=== PATIENT | female | born 1980 ===

== ENCOUNTER 2018-10-14 13:59 | Inpatient (IN) | payer MEDICAID, OTHER ==
[2018-10-14] MEDS ORDERED: DiphenhydrAMINE 50 mg/ml Inj IVP STA (15:00)
[2018-10-14] MEDS ORDERED: DiphenhydrAMINE 50 mg/ml Inj ONE (15:29)
--- NOTE | 2018-10-14 15:47 | ED PDOC ---
History of Present Illness History of Present Illness: Ena Ojeda is a 38 year old female with no past medical history who is presenting to the ED for evaluation of cough and sore throat onset 1 week ago. Patient states that approximately 3 weeks ago she had a sore throat and subjective fevers which lasted one week. She admits that she was using over the counter medications with some improvement however cough persists and she cont inues to have throat discomfort. Patient states that she feels like she is choking because she feels like there is liquid in the back of throat with continued trouble swallowing. She also reports that she feels short of breath and pain in chest secondary to cough. She denies any ear pain, night sweats, or body aches. Of note, patient states that she last took Ibuprofen at about 9 am today and notes an itchy rash to face and wrist that developed about 2 weeks ago. PMD: none provided HPI: Influenza Time Seen by Provider: 10/14/18 14:33 Chief Complaint: Cough, Cold, Congestion Chief Complaint (Provider): Cough, Cold, Congestion History Per: Patient Exam Limitations: no limitations Onset/Duration Of Symptoms: Days Symptoms include: fever (sbjective ), sore throat, cough. denies: bodyaches Past Medical History Reviewed: Historical Data, Nursing Documentation, Vital Signs Vital Signs: Last Vital Signs Temp 98.3 F 10/14/18 14:19 Pulse 106 H 10/14/18 14:19 Resp 20 10/14/18 14:19 BP 133/85 10/14/18 14:19 Pulse Ox 98 10/14/18 14:19 - Medical History PMH: No Chronic Diseases - Surgical History Surgical History: No Surg Hx - Family History Family History: States: Unknown Family Hx - Social History Current smoker - smoking cessation education provided: No Alcohol: None Drugs: Denies - Home Medications Home Medications: Ambulatory Orders Medication Instructions Recorded RX: No Known Home Med 10/14/18 - Allergies Allergies/Adverse Reactions: Allergies Allergy/AdvReac Type Severity Reaction Status Date / Time No Known Allergies Allergy Verified 10/14/18 14:19 Review of Systems ROS Statement: Except As Marked, All Systems Reviewed And Found Negative Constitutional: Positive for: Fever. Negative for: Sweats, Other (body aches ) ENT: Negative for: Ear Pain Cardiovascular: Positive for: Chest Pain Respiratory: Positive for: Cough, Shortness of Breath Skin: Positive for: Rash Physical Exam - Reviewed Nursing Documentation Reviewed: Yes Vital Signs Reviewed: Yes - Physical Exam Appears: Positive for: Non-toxic, No Acute Distress, Uncomfortable Head Exam: Positive for: ATRAUMATIC, NORMAL INSPECTION, NORMOCEPHALIC Skin: Positive for: Warm, Rash (urticarial rash: semicircular pattern to right cheek as well as right anterior ) ENT: Positive for: Tonsillar Swelling, Other (white punctate lesions to posterior pharynx and superior palate ). Negative for: Tonsillar Exudate Neck: Positive for: Normal, Painless ROM Cardiovascular/Chest: Positive for: Regular Rate, Rhythm, Murmur (3/6 systolic murmur without radiation ) Respiratory: Positive for: Normal Breath Sounds. Negative for: Respiratory Distress Neurologic/Psych: Positive for: Alert, Oriented. Negative for: Motor/Sensory Deficits Medical Decision Making Medical Decision Making: Time: 15:00 Plan: --EKG --CMP --ED urine --CBC --CXR --Benadryl 25 mg IVP --Tylenol 975 mg PO --Infectious [place] EKG: Sinus rhythm at 92 bpm. Normal EKG. Time: 1723 --Labs significant for creatinine of 4.3, low wbc, mild anemia. Patient to be admitted for renal failure under Dr. Johnson. Renal consult ordered. HIV, Blood Cx, U/A and urine cultures ordered. Renal consult called as per Dr. Johnson. I spoke with Dr. Mckinney who states that he is not compensation and benefits manager but will make sure to pass on the consult to the appropriate person. HIV +. Patient informed of result and that confirmatory test still needs to be done but that the initial test is usually accurate. Patient initially felt lightheaded after results given but recovered quickly. Patient admitted for further w/u. - Scribe Attestation: Documented byBertai acting as a scribe for Marian Sullivan PA-C. Provider Scribe Attestation: All medical record entries made by the Scribe were at my direction and personally dictated by me. I have reviewed the chart and agree that the record accurately reflects my personal performance of the history, physical exam, medical decision making, and the department course for this patient. I have also personally directed, reviewed, and agree with the discharge instructions and di sposition. - Laboratory Results Result Diagrams: 10/14/18 16:01 10/14/18 16:01 - ECG O2 Sat by Pulse Oximetry: 98 (RA) Pulse Ox Interpretation: Normal Disposition - Clinical Impression Clinical Impression: Acute renal failure (ARF) - Patient ED Disposition Is Patient to be Admitted: Yes Discussed With : Fernie Johnson Doctor Will See Patient In The: ED Counseled Patient/Family Regarding: Studies Performed, Diagnosis, Need For Followup - Disposition Disposition: Transfer of Care Disposition Time: 17:23 Condition: FAIR
[2018-10-14 16:08] LABS: BASO % 0.6 % (0.0-2.0); HEMOGLOBIN 9.4 g/dL (12.0-16.0); LYMPH # 1.3 K/uL (1.0-4.3); LYMPH % 27.5 % (20.0-40.0); MEAN CELL VOLUME 81.1 fl (81.0-99.0); MEAN CORPUSCULAR HEMOGLOBIN 27.3 pg (27.0-31.0); MEAN CORPUSCULAR HGB CONC 33.6 g/dL (33.0-37.0); MEAN PLATELET VOLUME 8.5 fl (7.2-11.7); MONO # 0.9 K/uL (0.0-0.8); MONO % 20.2 % (0.0-10.0); NEUT # 2.3 K/uL (1.8-7.0); NEUT % 50.7 % (50.0-75.0); NRBC % 0.1 % (0.0-0.0); PLATELET COUNT 184 K/uL (130-400); RBC 3.44 Mil/uL (3.80-5.20); RED CELL DISTRIBUTION WIDTH 14.6 % (11.5-14.5); WHITE BLOOD COUNT 4.6 K/uL (4.8-10.8)
[2018-10-14 16:19] LABS: ALB/GLOB RATIO 0.7 (1.0-2.1); CALCIUM 8.6 mg/dL (8.4-10.2)
--- NOTE | 2018-10-14 16:56 | RAD ---
Date of service: 10/14/2018 HISTORY: shortness of breath, cough COMPARISON: No prior. TECHNIQUE: Chest PA and lateral FINDINGS: LUNGS: No active pulmonary disease. PLEURA: No significant pleural effusion identified. No pneumothorax apparent. CARDIOVASCULAR: No aortic atherosclerotic calcification present. Normal cardiac size. No pulmonary vascular congestion. OSSEOUS STRUCTURES: No significant abnormalities. VISUALIZED UPPER ABDOMEN: Normal. OTHER FINDINGS: None. IMPRESSION: No active disease.
[2018-10-14] MEDS ORDERED: Sodium Chloride 3% for Inhalation 4 ML VIAL.NEB IH PRN (17:38)
[2018-10-14 18:01] LABS: EOSINOPHIL 1 % (0-7); LYMPHOCYTE 26 % (20-50); MONOCYTE 18 % (0-10); MYELOCYTE 1 % (0-0); NEUTROPHIL 54 % (42-75); TOTAL CELLS COUNTED 100
[2018-10-14 18:03] LABS: ANISOCYTOSIS SLIGHT; LARGE PLATELETS PRESENT; PLATELET ESTIMATE NORMAL (NORMAL); TEARDROP CELLS SLIGHT
[2018-10-14] MEDS ORDERED: Piperacillin/Tazobact 3.375 gm Inj IVPB ONE (18:14)
[2018-10-14] MEDS: Sodium Chloride 0.9% 1,000 ML IV SCH ×2 (18:18→22:50)
[2018-10-14 18:46] LABS: SQUAMOUS EPITHIAL 1 /hpf (0-5); URINE BACTERIA RARE (<OCC); URINE BILIRUBIN NEGATIVE (NEGATIVE); URINE BLOOD MODERATE (NEGATIVE); URINE CLARITY SLIGHTY-CLOUDY (Clear); URINE COLOR YELLOW (YELLOW); URINE GLUCOSE (UA) 50 mg/dL (NEGATIVE); URINE LEUKOCYTE ESTERASE NEG Leu/uL (Negative); URINE PROTEIN >=500 mg/dL (NEGATIVE); URINE UROBILINOGEN 0.2-1.0 mg/dL (0.2-1.0)
--- NOTE | 2018-10-14 18:59 | CP.PCM.HP ---
<Malia Naik - Last Filed: 10/15/18 00:17> History of Present Illness - History of Present Illness History of Present Illness: 38 yo female with no known medical history, presented to ED today for evaluation of cough and rash x 3 weeks; admitted due to ANTONINA found on bloodwork. Pt presented today with concern over cough x 3 weeks. States that for the first two weeks, cough was productive of green sputum (unable to quantify amount), but that has since resolved. She states [facility] mg tabs 3x a day for the past week (last dose yesterday), in hopes of helping the cough, but it did not help. She also reports subjective tactile fevers during this time, but did not measure with thermometer. Took advil and Tukol (OTC cough medicine) as well, with no relief. Denies sick contacts, states that her cousin who she lives with has a cough for the past few days. Denies travel outside [place], states she has only traveled to [place] in July 2018. Pt also came to ED for rash - rash appeared 3 weeks ago. Circular, itchy. Has not tried any medication at home. First noticed on face and wrist, however now also has it on her stomach. Denies night sweats, chills, chest pain, abdominal pain, nausea, vomiting, changes in appetite, changes in urinary habits, changes in bowel habits, leg swelling. Past Med hx: none Past Surg hx: 2 C-sections, 2001 and 2011, and BTL Social hx: former smoker (ages [age], 1 ppd; about 6 months ago smoked 4 cig a day for 2 months, denies smoking in past 4 months); alcohol on special occasions, denies drug use. Lives with her cousin. Sexually active with one partner. Does not use anything for contraception (including no condoms). Denies ever being diagnosed with any STI such as chlamydia, gonorrhea, syphilis, HIV. 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 Family hx: unknown Medications: no chronic medications Allergies: NKDA ED course: Vitals: HR 106, BP 133/85, Temp 98.3, RR 20, O2 sat 98 CBC: 4.6>9.4/27.9<184 CMP: remarkable for BUN 36, Cr 4.3, GFR 12 UA: >500 protein, 72 RBC, mod blood Influenza neg, Strep neg, [place] neg HIV Rapid Screen positive CXR: No active disease. Present on Admission - Present on Admission Any Indicators Present on Admission: No Review of Systems - Review of Systems Review of Systems: as mentioned in HPI Past Patient History - Past Social History Smoking Status: Former Smoker Alcohol: Social Drugs: Denies Home Situation {Lives}: With Family Domestic Violence: Negative - CARDIAC Hx Cardiac Disorders: No - PULMONARY Hx Respiratory Disorders: No - NEUROLOGICAL Hx Neurological Disorder: No - HEENT Hx HEENT Problems: No - RENAL Hx Chronic Kidney Disease: No - ENDOCRINE/METABOLIC Hx Endocrine Disorders: No - HEMATOLOGICAL/ONCOLOGICAL Hx Blood Disorders: No - INTEGUMENTARY Hx Dermatological Problems: No - MUSCULOSKELETAL/RHEUMATOLOGICAL Hx Musculoskeletal Disorders: No - GASTROINTESTINAL Hx Gastrointestinal Disorders: No - GENITOURINARY/GYNECOLOGICAL Hx Genitourinary Disorders: No - PSYCHIATRIC Hx Psychophysiologic Disorder: No Hx Substance Use: No - SURGICAL HISTORY Hx Surgeries: Yes Hx Section: Yes (x2) Other/Comment: BTL - ANESTHESIA Hx Anesthesia: Yes Hx Anesthesia Reactions: No Meds Allergies/Adverse Reactions: Allergies Allergy/AdvReac Type Severity Reaction Status Date / Time No Known Allergies Allergy Verified 10/14/18 14:19 Physical Exam - Constitutional Additional comments: tired, uncomfortable - Head Exam Head Exam: ATRAUMATIC - Eye Exam Eye Exam: Normal appearance - Neck Exam Neck exam: Negative for: Lymphadenopathy Additional comments: small white punctuate lesions on superior hard palate and posterior pharynx - Respiratory Exam Respiratory Exam: Clear to Auscultation Bilateral, NORMAL BREATHING PATTERN. absent: Respiratory Distress - Cardiovascular Exam Cardiovascular Exam: REGULAR RHYTHM, +S1, +S2 - GI/Abdominal Exam GI & Abdominal Exam: Normal Bowel Sounds, Soft Additional comments: + circular rash lesion, right sided abdomen - Extremities Exam Extremities exam: Negative for: pedal edema - Neurological Exam Neurological exam: Alert, Oriented x3 - Psychiatric Exam Additional comments: somewhat anxious - Skin Skin Exam: Rash Additional comments: circular/semicircular pattern to right cheek, right wrist, right sided abdomen, somewhat scaly appearing Results - Vital Signs Recent Vital Signs: Last Vital Signs Temp 98.3 F 10/14/18 14:19 Pulse 106 H 10/14/18 14:19 Resp 20 10/14/18 14:19 BP 133/85 10/14/18 14:19 Pulse Ox 98 10/14/18 17:27 - Labs Result Diagrams: 10/14/18 16:01 10/14/18 16:01 Labs: Laboratory Results - last 24 hr 10/14/18 10/14/18 10/14/18 16:01 16:01 16:01 WBC 4.6 L RBC 3.44 L Hgb 9.4 L Hct 27.9 L MCV 81.1 MCH 27.3 MCHC 33.6 RDW 14.6 H Plt Count 184 MPV 8.5 Neut % (Auto) 50.7 Lymph % (Auto) 27.5 [place] % (Auto) 20.2 H Eos % (Auto) 1.0 Baso % (Auto) 0.6 Neut # (Auto) 2.3 Lymph # (Auto) 1.3 [place] # (Auto) 0.9 H Eos # (Auto) 0.0 Baso # (Auto) 0.0 Neutrophils % (Manual) 54 Lymphocytes % (Manual) 26 Monocytes % (Manual) 18 H Eosinophils % (Manual) 1 Myelocytes % 1 H Platelet Estimate Normal Large Platelets Present Anisocytosis (manual) Slight Tear Drop Cells Slight Sodium 136 Potassium 4.8 Chloride 102 Carbon Dioxide 20 L Anion Gap 19 BUN 36 H Creatinine 4.3 H Est GFR ( Amer) 14 Est GFR (Non-Af Amer) 12 Random Glucose 90 Calcium 8.6 Total Bilirubin 0.3 AST 28 ALT 19 Alkaline Phosphatase 139 H NT-Pro-B Natriuret Pep Total Protein 7.6 Albumin 3.0 L Globulin 4.6 H Albumin/Globulin Ratio 0.7 L Urine Color Urine Clarity Urine pH Ur Specific [place] Urine Protein Urine Glucose (UA) Urine Ketones Urine Blood Urine Nitrate Urine Bilirubin Urine Urobilinogen Ur Leukocyte Esterase Urine RBC (Auto) Urine Microscopic WBC Ur Squamous Epith Cells Urine Bacteria Hyaline Casts Infectious [place] Assay Influenza Typ A,B (EIA) Negative for flu a/b Grp A Beta Strep Ag 10/14/18 10/14/18 10/14/18 16:01 16:01 16:45 WBC RBC Hgb Hct MCV MCH MCHC RDW Plt Count MPV Neut % (Auto) Lymph % (Auto) [place] % (Auto) Eos % (Auto) Baso % (Auto) Neut # (Auto) Lymph # (Auto) [place] # (Auto) Eos # (Auto) Baso # (Auto) Neutrophils % (Manual) Lymphocytes % (Manual) Monocytes % (Manual) Eosinophils % (Manual) Myelocytes % Platelet Estimate Large Platelets Anisocytosis (manual) Tear Drop Cells Sodium Potassium Chloride Carbon Dioxide Anion Gap BUN Creatinine Est GFR ( Amer) Est GFR (Non-Af Amer) Random Glucose Calcium Total Bilirubin AST ALT Alkaline Phosphatase NT-Pro-B Natriuret Pep 274 Total Protein Albumin Globulin Albumin/Globulin Ratio Urine Color Urine Clarity Urine pH Ur Specific [place] Urine Protein Urine Glucose (UA) Urine Ketones Urine Blood Urine Nitrate Urine Bilirubin Urine Urobilinogen Ur Leukocyte Esterase Urine RBC (Auto) Urine Microscopic WBC Ur Squamous Epith Cells Urine Bacteria Hyaline Casts Infectious [place] Assay Negative Influenza Typ A,B (EIA) Grp A Beta Strep Ag Negative 10/14/18 18:30 WBC RBC Hgb Hct MCV MCH MCHC RDW Plt Count MPV Neut % (Auto) Lymph % (Auto) [place] % (Auto) Eos % (Auto) Baso % (Auto) Neut # (Auto) Lymph # (Auto) [place] # (Auto) Eos # (Auto) Baso # (Auto) Neutrophils % (Manual) Lymphocytes % (Manual) Monocytes % (Manual) Eosinophils % (Manual) Myelocytes % Platelet Estimate Large Platelets Anisocytosis (manual) Tear Drop Cells Sodium Potassium Chloride Carbon Dioxide Anion Gap BUN Creatinine Est GFR ( Amer) Est GFR (Non-Af Amer) Random Glucose Calcium Total Bilirubin AST ALT Alkaline Phosphatase NT-Pro-B Natriuret Pep Total Protein Albumin Globulin Albumin/Globulin Ratio Urine Color Yellow Urine Clarity Slighty-cloudy Urine pH 6.0 Ur Specific [place] 1.015 Urine Protein >=500 Urine Glucose (UA) 50 Urine Ketones Negative Urine Blood Moderate Urine Nitrate Negative Urine Bilirubin Negative Urine Urobilinogen 0.2-1.0 Ur Leukocyte Esterase Neg Urine RBC (Auto) 72 H Urine Microscopic WBC 2 Ur Squamous Epith Cells 1 Urine Bacteria Rare Hyaline Casts 3-5 H Infectious [place] Assay Influenza Typ A,B (EIA) Grp A Beta Strep Ag Assessment & Plan - Assessment and Plan (Free Text) Assessment: 38 yo F with no known medical history, presented with cough and fungal appearing disseminated rash x 3 weeks; found to be in renal failure and with positive rapid HIV test. Plan: Renal Failure - Presumed acute, pt denies history of kidney issues in the past. - Nephrology consulted - Dr. Mckinney/Dr. Ann - Pending renal labs, as ordered by nephro - hepatitis b/c, complement, LEXI, SLE panel, microalb/cr, urine protein, mg, phos, vit d - Renal u/s taken; f/u results - CMP in am Anemia - Unknown etiology; may be secondary to kidney disease - Asymptomatic - F/u iron, TIBC, folate, ferritin Upper Respiratory Symptoms - Sputum culture - Blood culture, urine culture - Robitussin - CBC in am Skin Infection - Fungal vs bacterial - ID consulted- Dr. Carmona - Started on micafungin IV 100 mg daily, zosyn IVP Q8hrs HIV positive - Patient denies history, confirmatory test ordered - ID on board, pending recs Diet - Regular diet Prophylaxis - Pantoprazole - Heparin Q12 Discussed w/ Dr. Johnson. <Fernie Johnson D - Last Filed: 10/15/18 09:18> Results - Vital Signs Recent Vital Signs: Last Vital Signs Temp 98.7 F 10/15/18 08:00 Pulse 98 H 10/15/18 05:29 Resp 18 10/15/18 08:00 BP 126/82 10/15/18 08:00 Pulse Ox 97 10/15/18 08:00 - Labs Result Diagrams: 10/15/18 05:30 10/15/18 05:30 Labs: Laboratory Results - last 24 hr 10/14/18 10/14/18 10/14/18 16:01 16:01 16:01 WBC 4.6 L RBC 3.44 L Hgb 9.4 L Hct 27.9 L MCV 81.1 MCH 27.3 MCHC 33.6 RDW 14.6 H Plt Count 184 MPV 8.5 Neut % (Auto) 50.7 Lymph % (Auto) 27.5 [place] % (Auto) 20.2 H Eos % (Auto) 1.0 Baso % (Auto) 0.6 Neut # (Auto) 2.3 Lymph # (Auto) 1.3 [place] # (Auto) 0.9 H Eos # (Auto) 0.0 Baso # (Auto) 0.0 Neutrophils % (Manual) 54 Lymphocytes % (Manual) 26 Monocytes % (Manual) 18 H Eosinophils % (Manual) 1 Myelocytes % 1 H Platelet Estimate Normal Large Platelets Present Anisocytosis (manual) Slight Tear Drop Cells Slight Sodium 136 Potassium 4.8 Chloride 102 Carbon Dioxide 20 L Anion Gap 19 BUN 36 H Creatinine 4.3 H Est GFR ( Amer) 14 Est GFR (Non-Af Amer) 12 Random Glucose 90 Calcium 8.6 Phosphorus Magnesium Iron TIBC % Saturation Ferritin Total Bilirubin 0.3 AST 28 ALT 19 Alkaline Phosphatase 139 H NT-Pro-B Natriuret Pep Total Protein 7.6 Albumin 3.0 L Globulin 4.6 H Albumin/Globulin Ratio 0.7 L Vitamin B12 TSH 3rd Generation Urine Color Urine Clarity Urine pH Ur Specific [place] Urine Protein Urine Glucose (UA) Urine Ketones Urine Blood Urine Nitrate Urine Bilirubin Urine Urobilinogen Ur Leukocyte Esterase Urine RBC (Auto) Urine Microscopic WBC Ur Squamous Epith Cells Urine Bacteria Hyaline Casts HIV-1 Ab Rapid Screen Infectious [place] Assay Influenza Typ A,B (EIA) Negative for flu a/b Grp A Beta Strep Ag 10/14/18 10/14/18 10/14/18 16:01 16:01 16:45 WBC RBC Hgb Hct MCV MCH MCHC RDW Plt Count MPV Neut % (Auto) Lymph % (Auto) [place] % (Auto) Eos % (Auto) Baso % (Auto) Neut # (Auto) Lymph # (Auto) [place] # (Auto) Eos # (Auto) Baso # (Auto) Neutrophils % (Manual) Lymphocytes % (Manual) Monocytes % (Manual) Eosinophils % (Manual) Myelocytes % Platelet Estimate Large Platelets Anisocytosis (manual) Tear Drop Cells Sodium Potassium Chloride Carbon Dioxide Anion Gap BUN Creatinine Est GFR ( Amer) Est GFR (Non-Af Amer) Random Glucose Calcium Phosphorus Magnesium Iron TIBC % Saturation Ferritin Total Bilirubin AST ALT Alkaline Phosphatase NT-Pro-B Natriuret Pep 274 Total Protein Albumin Globulin Albumin/Globulin Ratio Vitamin B12 TSH 3rd Generation Urine Color Urine Clarity Urine pH Ur Specific [place] Urine Protein Urine Glucose (UA) Urine Ketones Urine Blood Urine Nitrate Urine Bilirubin Urine Urobilinogen Ur Leukocyte Esterase Urine RBC (Auto) Urine Microscopic WBC Ur Squamous Epith Cells Urine Bacteria Hyaline Casts HIV-1 Ab Rapid Screen Infectious [place] Assay Negative Influenza Typ A,B (EIA) Grp A Beta Strep Ag Negative 10/14/18 10/14/18 10/14/18 17:30 18:30 20:10 WBC RBC Hgb Hct MCV MCH MCHC RDW Plt Count MPV Neut % (Auto) Lymph % (Auto) [place] % (Auto) Eos % (Auto) Baso % (Auto) Neut # (Auto) Lymph # (Auto) [place] # (Auto) Eos # (Auto) Baso # (Auto) Neutrophils % (Manual) Lymphocytes % (Manual) Monocytes % (Manual) Eosinophils % (Manual) Myelocytes % Platelet Estimate Large Platelets Anisocytosis (manual) Tear Drop Cells Sodium Potassium Chloride Carbon Dioxide Anion Gap BUN Creatinine Est GFR ( Amer) Est GFR (Non-Af Amer) Random Glucose Calcium Phosphorus Magnesium Iron 54 TIBC 137 L % Saturation 40 Ferritin Total Bilirubin AST ALT Alkaline Phosphatase NT-Pro-B Natriuret Pep Total Protein Albumin Globulin Albumin/Globulin Ratio Vitamin B12 TSH 3rd Generation Urine Color Yellow Urine Clarity Slighty-cloudy Urine pH 6.0 Ur Specific [place] 1.015 Urine Protein >=500 Urine Glucose (UA) 50 Urine Ketones Negative Urine Blood Moderate Urine Nitrate Negative Urine Bilirubin Negative Urine Urobilinogen 0.2-1.0 Ur Leukocyte Esterase Neg Urine RBC (Auto) 72 H Urine Microscopic WBC 2 Ur Squamous Epith Cells 1 Urine Bacteria Rare Hyaline Casts 3-5 H HIV-1 Ab Rapid Screen Ab reactive H Infectious [place] Assay Influenza Typ A,B (EIA) Grp A Beta Strep Ag 10/14/18 10/15/18 10/15/18 20:10 05:30 05:30 WBC 4.4 L RBC 3.00 L Hgb 8.1 L Hct 24.0 L MCV 79.9 L MCH 27.1 MCHC 34.0 RDW 14.6 H Plt Count 158 MPV 8.1 Neut % (Auto) 53.1 Lymph % (Auto) 27.1 [place] % (Auto) 17.2 H Eos % (Auto) 2.2 Baso % (Auto) 0.4 Neut # (Auto) 2.3 Lymph # (Auto) 1.2 [place] # (Auto) 0.8 Eos # (Auto) 0.1 Baso # (Auto) 0.0 Neutrophils % (Manual) Lymphocytes % (Manual) Monocytes % (Manual) Eosinophils % (Manual) Myelocytes % Platelet Estimate Large Platelets Anisocytosis (manual) Tear Drop Cells Sodium 135 Potassium 4.8 Chloride 105 Carbon Dioxide 19 L Anion Gap 16 BUN 35 H Creatinine 4.4 H Est GFR ( Amer) 14 Est GFR (Non-Af Amer) 11 Random Glucose 82 Calcium 8.0 L Phosphorus 5.0 H Magnesium 1.7 Iron TIBC % Saturation Ferritin 547.0 H Total Bilirubin AST ALT Alkaline Phosphatase NT-Pro-B Natriuret Pep Total Protein Albumin Globulin Albumin/Globulin Ratio Vitamin B12 345 TSH 3rd Generation 1.63 Urine Color Urine Clarity Urine pH Ur Specific [place] Urine Protein Urine Glucose (UA) Urine Ketones Urine Blood Urine Nitrate Urine Bilirubin Urine Urobilinogen Ur Leukocyte Esterase Urine RBC (Auto) Urine Microscopic WBC Ur Squamous Epith Cells Urine Bacteria Hyaline Casts HIV-1 Ab Rapid Screen Infectious [place] Assay Influenza Typ A,B (EIA) Grp A Beta Strep Ag Attending/Attestation - Attestation I have personally seen and examined this patient.: Yes I have fully participated in the care of the patient.: Yes I have reviewed all pertinent clinical information: Yes Notes (Text): 10/15/18 09:18 Patient seen and examined with resident. Case discussed and agreed with assessment and plan of management.
[2018-10-14] MEDS: Micafungin 100 MG in Sodium Chloride 0.9% 100 ML IV SCH (19:15)
[2018-10-14 20:33] LABS: IRON 54 ug/dL (37-170)
[2018-10-14 20:42] LABS: % IRON SATURATION 40 % (20-55); TOTAL IRON BINDING CAPACITY 137 ug/dL (250-450)
[2018-10-15] MEDS: Benzocaine/Menthol (Cepacol) Lozenge PO PRN ×2 (00:09→04:13)
[2018-10-15] MEDS: guaiFENesin 100 mg/5 ml Syrup UD PO PRN ×3 (00:32→17:34)
[2018-10-15] MEDS: Sodium Chloride 0.9% 1,000 ML IV SCH ×3 (04:16→13:33)
[2018-10-15 06:51] LABS: BASO % 0.4 % (0.0-2.0); EOS # 0.1 K/uL (0.0-0.7); EOS % 2.2 % (0.0-4.0); HEMOGLOBIN 8.1 g/dL (12.0-16.0); LYMPH # 1.2 K/uL (1.0-4.3); LYMPH % 27.1 % (20.0-40.0); MEAN CELL VOLUME 79.9 fl (81.0-99.0); MEAN CORPUSCULAR HEMOGLOBIN 27.1 pg (27.0-31.0); MEAN PLATELET VOLUME 8.1 fl (7.2-11.7); MONO # 0.8 K/uL (0.0-0.8); MONO % 17.2 % (0.0-10.0); NEUT # 2.3 K/uL (1.8-7.0); NEUT % 53.1 % (50.0-75.0); NRBC % 0.1 % (0.0-0.0); RED CELL DISTRIBUTION WIDTH 14.6 % (11.5-14.5); WHITE BLOOD COUNT 4.4 K/uL (4.8-10.8)
[2018-10-15] MEDS: Micafungin 100 MG in Sodium Chloride 0.9% 100 ML IV SCH (09:30)
[2018-10-15] MEDS: Pantoprazole 40 mg EC Tab PO SCH (09:35)
--- NOTE | 2018-10-15 09:59 | CP.PCM.PN ---
<Sultan Daniel - Last Filed: 10/15/18 11:15> Subjective - Date & Time of Evaluation Date of Evaluation: 10/15/18 Time of Evaluation: 09:59 - Subjective Subjective: 38 yo old female admitted for ANTONINA and disseminated fungal appearing rash, found to be positive for rapid HIV test. Patient recently came from [facility] on 07/2018. Patient seen and examined this morning No acute overnight events. Afebrile with stable vitals. Still has cough and sore throat. Denies any nausea, vomiting, abdominal pain, dysuria, fever, chills or flank pain. Patient is tolerating PO. Normal BM and voiding regularly. Objective - Vital Signs/Intake and Output Vital Signs (last 24 hours): Temp Pulse Resp BP Pulse Ox 98.7 F 98 H 18 126/82 97 10/15/18 08:00 10/15/18 05:29 10/15/18 08:00 10/15/18 08:00 10/15/18 08:00 - Medications Medications: Current Medications Benzocaine/Menthol (Cepacol Sore Throat) 1 lety PO Q2 PRN PRN Reason: Sore Throat Last Admin: 10/15/18 04:13 Dose: 1 lety Guaifenesin (Robitussin) 100 mg PO Q4 PRN PRN Reason: Cough Last Admin: 10/15/18 04:19 Dose: 100 mg Heparin Sodium (Porcine) (Heparin) 5,000 units SC Q12 [facility]; Protocol Last Admin: 10/15/18 09:34 Dose: 5,000 units Sodium Chloride (Sodium Chloride 0.9%) 1,000 mls @ 200 mls/hr IV .Q5H [facility] Last Admin: 10/15/18 04:16 Dose: 200 mls/hr Piperacillin Sod/Tazobactam (Sod 2.25 gm/ Sodium Chloride) 100 mls @ 100 mls/hr IVPB Q8 [facility]; Protocol Last Admin: 10/15/18 00:10 Dose: 100 mls/hr Micafungin Sodium 100 mg/ (Sodium Chloride) 100 mls @ 100 mls/hr IV DAILY [facility] Last Admin: 10/15/18 09:30 Dose: 100 mls/hr Pantoprazole Sodium (Protonix Ec Tab) 40 mg PO DAILY [facility] Last Admin: 02/02/19 09:35 Dose: 40 mg - Labs Labs: 10/15/18 05:30 10/15/18 05:30 - Constitutional Appears: No Acute Distress - Head Exam Head Exam: NORMAL INSPECTION - Eye Exam Eye Exam: Normal appearance - ENT Exam ENT Exam: Mucous Membranes Moist Additional comments: small whitish lesions on superior hard palate and posterior pharynx - Neck Exam Neck Exam: Full ROM. absent: Lymphadenopathy - Respiratory Exam Respiratory Exam: Clear to Ausculation Bilateral, NORMAL BREATHING PATTERN. absent: Rhonchi, Wheezes - Cardiovascular Exam Cardiovascular Exam: REGULAR RHYTHM, +S1, +S2 - GI/Abdominal Exam GI & Abdominal Exam: Soft, Normal Bowel Sounds. absent: Tenderness Additional comments: + circular rash lesion, right sided abdomen - Extremities Exam Extremities Exam: Normal Inspection. absent: Calf Tenderness - Back Exam Back Exam: absent: CVA tenderness (L), CVA tenderness (R) - Neurological Exam Neurological Exam: Alert, Awake, Oriented x3 - Skin Skin Exam: Rash Additional comments: oval shaped slight erythematous raised scaly appearing rash on right cheek, right wrist, right sided abdomen. Assessment and Plan - Assessment and Plan (Free Text) Assessment: 38 yo F with no known medical history, presented with cough and fungal appearing disseminated rash x 3 weeks; found to be in renal failure and with positive rapid HIV test. Plan: Renal Failure - Presumed acute, pt denies history of kidney issues in the past. - Nephrology consulted - Dr. Mckinney/Dr. 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 Carmona - Started on micafungin IV 100 mg daily, zosyn IVP Q8hrs Anemia - Unknown etiology; may be secondary to kidney disease - Asymptomatic -H&H 8.1/24.0 -Iron 54, TIBC 137, ferritin 547 -Vitamin b 12: 345 Upper Respiratory Symptoms - Sputum culture - Blood culture, urine culture - Robitussin - CBC in am Diet - Regular diet Prophylaxis - Pantoprazole - Heparin Q12 Discussed w/ Dr. Johnson. <Fernie Johnson D - Last Filed: 10/15/18 13:03> Objective - Vital Signs/Intake and Output Vital Signs (last 24 hours): Temp Pulse Resp BP Pulse Ox 97.9 F 88 18 134/72 95 10/15/18 12:09 10/15/18 12:09 10/15/18 12:09 10/15/18 12:09 10/15/18 12:09 - Medications Medications: Current Medications Benzocaine/Menthol (Cepacol Sore Throat) 1 lety PO Q2 PRN PRN Reason: Sore Throat Last Admin: 10/15/18 04:13 Dose: 1 lety Epoetin Lemuel (Procrit) 8,000 unit SC TTS [facility] Ferrous Gluconate (Fergon) 324 mg PO TID [facility] Guaifenesin (Robitussin) 100 mg PO Q4 PRN PRN Reason: Cough Last Admin: 10/15/18 04:19 Dose: 100 mg Heparin Sodium (Porcine) (Heparin) 5,000 units SC Q12 [facility]; Protocol Last Admin: 10/15/18 09:34 Dose: 5,000 units Piperacillin Sod/Tazobactam (Sod 2.25 gm/ Sodium Chloride) 100 mls @ 100 mls/hr IVPB Q8 [facility]; Protocol Last Admin: 10/15/18 11:10 Dose: 100 mls/hr Micafungin Sodium 100 mg/ (Sodium Chloride) 100 mls @ 100 mls/hr IV DAILY [facility] Last Admin: 10/15/18 09:30 Dose: 100 mls/hr Sodium Chloride (Sodium Chloride 0.9%) 1,000 mls @ 75 mls/hr IV .[id number] [facility] Last Admin: 10/15/18 11:17 Dose: 75 mls/hr Pantoprazole Sodium (Protonix Ec Tab) 40 mg PO DAILY [facility] Last Admin: 10/15/18 09:35 Dose: 40 mg Sodium Bicarbonate (Sodium Bicarbonate Tab) 1,300 mg PO BID [facility] Last Admin: 02/02/19 11:14 Dose: 1,300 mg Vitamin B Complex/Vit C/Folic Acid (Nephro-Marah) 1 tab PO DAILY [facility] Last Admin: 10/15/18 11:14 Dose: 1 tab - Labs Labs: 10/15/18 05:30 10/15/18 05:30 Attending/Attestation - Attestation I have personally seen and examined this patient.: Yes I have fully participated in the care of the patient.: Yes I have reviewed all pertinent clinical information, including history, physical exam and plan: Yes Notes (Text): 10/15/18 13:03 Patient seen and examined with resident. Case discussed and agreed with assessment and plans.
--- NOTE | 2018-10-15 10:10 | US ---
Date of service: 10/14/2018 PROCEDURE: Ultrasound of the Kidneys HISTORY: acute renal failure COMPARISON: None available. TECHNIQUE: Sonogram of the kidneys. FINDINGS: RIGHT KIDNEY: Measures: 11.8 x 5.1 x 4.7 cm. Mild fullness of the renal pelvis. No obstructing calculus identified. No renal solid or cystic mass appreciated. LEFT KIDNEY: Measures: 10.9 x 5.9 x 6.4 cm. Mild fullness of the renal pelvis. No obstructing calculus identified. No renal solid or cystic mass appreciated. OTHER FINDINGS: None. IMPRESSION: Mild fullness of bilateral renal pelves. Preliminary impression was provided by [email or web address].
[2018-10-15] MEDS: Multivitamin Vitamin B Complex (Nephro-Vite) Tab PO SCH (11:14)
[2018-10-15 12:19] LABS: COMPLEMENT C4 27.9 mg/dL (14.0-44.0)
[2018-10-15 12:43] LABS: HEPATITIS B SURFACE AG Negative (NEGATIVE)
[2018-10-15 12:49] LABS: HEPATITIS B CORE AB NEGATIVE (NEGATIVE)
[2018-10-15 13:00] LABS: HEPATITIS C ANTIBODY NEGATIVE (NEGATIVE)
[2018-10-15 13:17] LABS: FOLATE 7.3 ng/mL
[2018-10-15] MEDS: Epoetin Alfa 20000 UNIT/ML Inj SC SCH (13:32)
--- NOTE | 2018-10-15 17:13 | CARD ---
APPROVED REPORT Date of service: 10/14/2018 EKG Measurement Heart [id number] NM [id number] <Conclusion> Normal sinus rhythm Normal ECG
--- NOTE | 2018-10-15 18:13 | CP.PCM.CON ---
History of Present Illness - History of Present Illness History of Present Illness: 38 y old woman presented with difficulty swallowing and rash for the past 3 weeks and found to have ANTONINA on blood work. Denies any night sweats or fevers. Past Patient History - Past Medical History & Family History Past Medical History?: No - Past Social History Smoking Status: Former Smoker - CARDIAC Hx Cardiac Disorders: No - PULMONARY Hx Respiratory Disorders: No - NEUROLOGICAL Hx Neurological Disorder: No - HEENT Hx HEENT Problems: No - RENAL Hx Chronic Kidney Disease: No - ENDOCRINE/METABOLIC Hx Endocrine Disorders: No - HEMATOLOGICAL/ONCOLOGICAL Hx AIDS: No Hx Human Immunodeficiency Virus (HIV): Yes - INTEGUMENTARY Hx Dermatological Problems: No - MUSCULOSKELETAL/RHEUMATOLOGICAL Hx Falls: No - GASTROINTESTINAL Hx Gastrointestinal Disorders: No - GENITOURINARY/GYNECOLOGICAL Hx Genitourinary Disorders: No - PSYCHIATRIC Hx Substance Use: No - SURGICAL HISTORY Hx Surgeries: Yes Hx Section: Yes (x2) Other/Comment: BTL - ANESTHESIA Hx Anesthesia: Yes Hx Anesthesia Reactions: No Meds Allergies/Adverse Reactions: Allergies Allergy/AdvReac Type Severity Reaction Status Date / Time No Known Allergies Allergy Verified 10/14/18 14:19 - Medications Medications: Current Medications Benzocaine/Menthol (Cepacol Sore Throat) 1 lety PO Q2 PRN PRN Reason: Sore Throat Last Admin: 10/15/18 04:13 Dose: 1 lety Epoetin Lemuel (Procrit) 8,000 unit SC TTS [facility] Last Admin: 10/15/18 13:32 Dose: 8,000 unit Ferrous Gluconate (Fergon) 324 mg PO TID [facility] Last Admin: 10/15/18 17:18 Dose: 324 mg Guaifenesin (Robitussin) 100 mg PO Q4 PRN PRN Reason: Cough Last Admin: 10/15/18 17:34 Dose: 100 mg Heparin Sodium (Porcine) (Heparin) 5,000 units SC Q12 [facility]; Protocol Last Admin: 10/15/18 09:34 Dose: 5,000 units Piperacillin Sod/Tazobactam (Sod 2.25 gm/ Sodium Chloride) 100 mls @ 100 mls/hr IVPB Q8 [facility]; Protocol Last Admin: 10/15/18 17:26 Dose: 100 mls/hr Micafungin Sodium 100 mg/ (Sodium Chloride) 100 mls @ 100 mls/hr IV DAILY [facility] Last Admin: 10/15/18 09:30 Dose: 100 mls/hr Sodium Chloride (Sodium Chloride 0.9%) 1,000 mls @ 75 mls/hr IV .[id number] [facility] Last Admin: 10/15/18 11:17 Dose: 75 mls/hr Pantoprazole Sodium (Protonix Ec Tab) 40 mg PO DAILY [facility] Last Admin: 10/15/18 09:35 Dose: 40 mg Sodium Bicarbonate (Sodium Bicarbonate Tab) 1,300 mg PO BID [facility] Last Admin: 10/15/18 17:19 Dose: 1,300 mg Vitamin B Complex/Vit C/Folic Acid (Nephro-Marah) 1 tab PO DAILY [facility] Last Admin: 10/15/18 11:14 Dose: 1 tab Physical Exam - ENT Exam Additional comments: whitish patches in the pharynx - Skin Additional comments: circular scattered rash faint at current time Results - Vital Signs Recent Vital Signs: Last Vital Signs Temp 98.8 F 10/15/18 16:17 Pulse 83 10/15/18 16:17 Resp 17 10/15/18 16:17 BP 139/84 10/15/18 16:17 Pulse Ox 96 10/15/18 16:17 - Labs Result Diagrams: 10/15/18 05:30 10/15/18 05:30 Labs: Laboratory Results - last 24 hr 10/14/18 10/14/18 10/14/18 17:30 18:30 20:10 WBC RBC Hgb Hct MCV MCH MCHC RDW Plt Count MPV Neut % (Auto) Lymph % (Auto) [place] % (Auto) Eos % (Auto) Baso % (Auto) Neut # (Auto) Lymph # (Auto) [place] # (Auto) Eos # (Auto) Baso # (Auto) Sodium Potassium Chloride Carbon Dioxide Anion Gap BUN Creatinine Est GFR ( Amer) Est GFR (Non-Af Amer) Random Glucose Calcium Phosphorus Magnesium Iron 54 TIBC 137 L % Saturation 40 Ferritin Vitamin B12 25-OH Vitamin D Total Folate TSH 3rd Generation Urine Color Yellow Urine Clarity Slighty-cloudy Urine pH 6.0 Ur Specific [place] 1.015 Urine Protein >=500 Urine Glucose (UA) 50 Urine Ketones Negative Urine Blood Moderate Urine Nitrate Negative Urine Bilirubin Negative Urine Urobilinogen 0.2-1.0 Ur Leukocyte Esterase Neg Urine RBC (Auto) 72 H Urine Microscopic WBC 2 Ur Squamous Epith Cells 1 Urine Bacteria Rare Hyaline Casts 3-5 H Complement C3 Complement C4 Hep Bs Antigen Hep B Core IgM Ab Hepatitis C Antibody HIV-1 Ab Rapid Screen Ab reactive H 10/14/18 10/14/18 10/15/18 20:10 20:10 05:30 WBC 4.4 L RBC 3.00 L Hgb 8.1 L Hct 24.0 L MCV 79.9 L MCH 27.1 MCHC 34.0 RDW 14.6 H Plt Count 158 MPV 8.1 Neut % (Auto) 53.1 Lymph % (Auto) 27.1 [place] % (Auto) 17.2 H Eos % (Auto) 2.2 Baso % (Auto) 0.4 Neut # (Auto) 2.3 Lymph # (Auto) 1.2 [place] # (Auto) 0.8 Eos # (Auto) 0.1 Baso # (Auto) 0.0 Sodium Potassium Chloride Carbon Dioxide Anion Gap BUN Creatinine Est GFR ( Amer) Est GFR (Non-Af Amer) Random Glucose Calcium Phosphorus Magnesium Iron TIBC % Saturation Ferritin 547.0 H Vitamin B12 345 25-OH Vitamin D Total Folate 7.3 TSH 3rd Generation Urine Color Urine Clarity Urine pH Ur Specific [place] Urine Protein Urine Glucose (UA) Urine Ketones Urine Blood Urine Nitrate Urine Bilirubin Urine Urobilinogen Ur Leukocyte Esterase Urine RBC (Auto) Urine Microscopic WBC Ur Squamous Epith Cells Urine Bacteria Hyaline Casts Complement C3 132.0 Complement C4 27.9 Hep Bs Antigen Negative Hep B Core IgM Ab Negative Hepatitis C Antibody Negative HIV-1 Ab Rapid Screen 10/15/18 10/15/18 05:30 05:30 WBC RBC Hgb Hct MCV MCH MCHC RDW Plt Count MPV Neut % (Auto) Lymph % (Auto) [place] % (Auto) Eos % (Auto) Baso % (Auto) Neut # (Auto) Lymph # (Auto) [place] # (Auto) Eos # (Auto) Baso # (Auto) Sodium 135 Potassium 4.8 Chloride 105 Carbon Dioxide 19 L Anion Gap 16 BUN 35 H Creatinine 4.4 H Est GFR ( Amer) 14 Est GFR (Non-Af Amer) 11 Random Glucose 82 Calcium 8.0 L Phosphorus 5.0 H Magnesium 1.7 Iron TIBC % Saturation Ferritin Vitamin B12 25-OH Vitamin D Total < 12.8 L Folate TSH 3rd Generation 1.63 Urine Color Urine Clarity Urine pH Ur Specific [place] Urine Protein Urine Glucose (UA) Urine Ketones Urine Blood Urine Nitrate Urine Bilirubin Urine Urobilinogen Ur Leukocyte Esterase Urine RBC (Auto) Urine Microscopic WBC Ur Squamous Epith Cells Urine Bacteria Hyaline Casts Complement C3 Complement C4 Hep Bs Antigen Hep B Core IgM Ab Hepatitis C Antibody HIV-1 Ab Rapid Screen Assessment & Plan - Assessment and Plan (Free Text) Assessment: HIV + with oral thrush Rash; HIV vs fungal. ANTONINA Agree with mycamin #2/10. Continue Zosyn #2/7 Make arrangements for follow up at [facility] at time of discharge for HIV treatment and follow up.
--- NOTE | 2018-10-15 18:48 | CP.PCM.CON ---
History of Present Illness - History of Present Illness History of Present Illness: Nephrology Consultation Note: Assessment: Stable Acute Kidney Injury (N17.9) ? etiology ? HIVAN Anemia (D64.9) HIV + UTI ? thrush proteinuria acidosis, vit d def Plan No acute need for renal replacement therapy at this time. Hypertension control with meds as ordered. Maintain hemodynamics stable. Avoid hypotension. Patient not on ACEI/ARB due to recent ANTONINA Monitor Input/Output, daily weights and renal function with basic metabolic pane l started iron, MVI and epogen lower IVF ID following recommend kidney biopsy. check type/screen. may need to transfuse PRBC to target Hb atleast 9-10 prior to biopsy started bicarb and weekly vit D Check urine analysis, spot protein/creatinine, albumin/creatinine ratio, urine for eosinophils. renal sonogram Check GN work up as C3, C4, LEXI, Anti dsDNA, ASO titers, ANCA (MPO and MN-3), Anti GBM antibody, HIV/Hep B and Hep C serology Anemia work up with TSAT/Ferritin/Vitamin B12/folate Check for 25-OH vitamin D, iPTH, phosphorus level. Dose meds/antibiotics for reduced GFR. Avoid fleets enema/magnesium based laxatives. Avoid nephrotoxins/NSAIDs/ iodinated contrast (unless needed emergently) Glycemic control Further work up/management as per primary team Thanks for allowing me to participate in care of your patient. Will follow patient with you. Please call if any Qs Dr Seth Cheema Office: [phone] Chief Complaint; cough Reason for consult: Acute Kidney Injury HPI: Pt is a 38 F obese with out known medical hx presented with complaints of cough/sore throat and skin rash. found to have HIV + and ANTONINA hence renal consulted Denies OTC/herbal meds but reported use of NSAIDs No recent iodinated contrast exposure. No obvious episodes of low BP. she feels better ROS: used language line Cardiovascular: No chest pain. Pulmonary: No shortness of breath Gastrointestinal: denies abdominal pain No nausea. No vomiting. Genitourinary: No pain while urinating. Denies blood in urine. All other negative except as mentioned in HPI Physical Examination: General Appearance: Comfortable, in no acute respiratory distress, co-operative . obese Vitals reviewed and noted as below Head; Atraumatic, normocephalic ENT: no ulcers no thrush. Tongue is midline. Oropharynx: no rash or ulcers. EYES: Pupils are equal, round and reactive to light accommodation. Eye muscles and extraocular movement intact. Sclera is anicteric. Neck; supple no lymphadenopathy, no thyromegaly or bruit Lungs: Normal respiratory rate/effort. Breath sounds bilateral equal and clear Heart: Normal rate. s1s2 normal. No rub or gallop. Extremities: no edema. No varicose veins Neurological: Patient is alert, awake and oriented to person, place and time. No focal deficit. Strength bilateral appropriate and equal Skin: Warm and dry. Normal turgor. No rash. Palpitation: Normal elasticity for age Abdomen: Abdomen is soft. Bowel sounds +. There is no abdominal tenderness, no guarding/rigidity no organomegaly Psych: normal insight and normal affect/mood MSK: no joint tenderness or swelling. Digits and nails normal, no deformity : kidney or bladder not palpable Labs/imaging reviewed. Past medical history, past surgical history, family history, social history, allergy reviewed and noted as below Family hx: no hx of CKD. Rest non-contributory Past Patient History - Past Medical History & Family History Past Medical History?: No - Past Social History Smoking Status: Former Smoker - CARDIAC Hx Cardiac Disorders: No - PULMONARY Hx Respiratory Disorders: No - NEUROLOGICAL Hx Neurological Disorder: No - HEENT Hx HEENT Problems: No - RENAL Hx Chronic Kidney Disease: No - ENDOCRINE/METABOLIC Hx Endocrine Disorders: No - HEMATOLOGICAL/ONCOLOGICAL Hx AIDS: No Hx Human Immunodeficiency Virus (HIV): Yes - INTEGUMENTARY Hx Dermatological Problems: No - MUSCULOSKELETAL/RHEUMATOLOGICAL Hx Falls: No - GASTROINTESTINAL Hx Gastrointestinal Disorders: No - GENITOURINARY/GYNECOLOGICAL Hx Genitourinary Disorders: No - PSYCHIATRIC Hx Substance Use: No - SURGICAL HISTORY Hx Surgeries: Yes Hx Section: Yes (x2) Other/Comment: BTL - ANESTHESIA Hx Anesthesia: Yes Hx Anesthesia Reactions: No Meds Allergies/Adverse Reactions: Allergies Allergy/AdvReac Type Severity Reaction Status Date / Time No Known Allergies Allergy Verified 10/14/18 14:19 - Medications Medications: Current Medications Benzocaine/Menthol (Cepacol Sore Throat) 1 lety PO Q2 PRN PRN Reason: Sore Throat Last Admin: 10/15/18 04:13 Dose: 1 lety Epoetin Lemuel (Procrit) 8,000 unit SC TTS [facility] Last Admin: 10/15/18 13:32 Dose: 8,000 unit Ferrous Gluconate (Fergon) 324 mg PO TID [facility] Last Admin: 10/15/18 17:18 Dose: 324 mg Guaifenesin (Robitussin) 100 mg PO Q4 PRN PRN Reason: Cough Last Admin: 10/15/18 17:34 Dose: 100 mg Heparin Sodium (Porcine) (Heparin) 5,000 units SC Q12 [facility]; Protocol Last Admin: 10/15/18 09:34 Dose: 5,000 units Piperacillin Sod/Tazobactam (Sod 2.25 gm/ Sodium Chloride) 100 mls @ 100 mls/hr IVPB Q8 [facility]; Protocol Last Admin: 10/15/18 17:26 Dose: 100 mls/hr Micafungin Sodium 100 mg/ (Sodium Chloride) 100 mls @ 100 mls/hr IV DAILY [facility] Last Admin: 10/15/18 09:30 Dose: 100 mls/hr Sodium Chloride (Sodium Chloride 0.9%) 1,000 mls @ 75 mls/hr IV .[id number] [facility] Last Admin: 10/15/18 11:17 Dose: 75 mls/hr Pantoprazole Sodium (Protonix Ec Tab) 40 mg PO DAILY [facility] Last Admin: 10/15/18 09:35 Dose: 40 mg Sodium Bicarbonate (Sodium Bicarbonate Tab) 1,300 mg PO BID [facility] Last Admin: 10/15/18 17:19 Dose: 1,300 mg Vitamin B Complex/Vit C/Folic Acid (Nephro-Marah) 1 tab PO DAILY [facility] Last Admin: 10/15/18 11:14 Dose: 1 tab Results - Vital Signs Recent Vital Signs: Last Vital Signs Temp 98.8 F 10/15/18 16:17 Pulse 83 10/15/18 16:17 Resp 17 10/15/18 16:17 BP 139/84 10/15/18 16:17 Pulse Ox 96 10/15/18 16:17 - Labs Result Diagrams: 10/15/18 05:30 10/15/18 05:30 Labs: Laboratory Results - last 24 hr 10/14/18 10/14/18 10/14/18 17:30 18:30 20:00 WBC RBC Hgb Hct MCV MCH MCHC RDW Plt Count MPV Neut % (Auto) Lymph % (Auto) [place] % (Auto) Eos % (Auto) Baso % (Auto) Neut # (Auto) Lymph # (Auto) [place] # (Auto) Eos # (Auto) Baso # (Auto) Sodium Potassium Chloride Carbon Dioxide Anion Gap BUN Creatinine Est GFR ( Amer) Est GFR (Non-Af Amer) Random Glucose Calcium Phosphorus Magnesium Iron TIBC % Saturation Ferritin Vitamin B12 25-OH Vitamin D Total Folate TSH 3rd Generation Urine Color Yellow Urine Clarity Slighty-cloudy Urine pH 6.0 Ur Specific [place] 1.015 Urine Protein >=500 Urine Glucose (UA) 50 Urine Ketones Negative Urine Blood Moderate Urine Nitrate Negative Urine Bilirubin Negative Urine Urobilinogen 0.2-1.0 Ur Leukocyte Esterase Neg Urine RBC (Auto) 72 H Urine Microscopic WBC 2 Ur Squamous Epith Cells 1 Urine Bacteria Rare Hyaline Casts 3-5 H Complement C3 Complement C4 Hep Bs Antigen Hep B Core IgM Ab Hepatitis C Antibody HIV-1 Ab Rapid Screen Ab reactive H Anti-Streptolysin O Ab Negative 10/14/18 10/14/18 10/14/18 20:10 20:10 20:10 WBC RBC Hgb Hct MCV MCH MCHC RDW Plt Count MPV Neut % (Auto) Lymph % (Auto) [place] % (Auto) Eos % (Auto) Baso % (Auto) Neut # (Auto) Lymph # (Auto) [place] # (Auto) Eos # (Auto) Baso # (Auto) Sodium Potassium Chloride Carbon Dioxide Anion Gap BUN Creatinine Est GFR ( Amer) Est GFR (Non-Af Amer) Random Glucose Calcium Phosphorus Magnesium Iron 54 TIBC 137 L % Saturation 40 Ferritin 547.0 H Vitamin B12 345 25-OH Vitamin D Total Folate 7.3 TSH 3rd Generation Urine Color Urine Clarity Urine pH Ur Specific [place] Urine Protein Urine Glucose (UA) Urine Ketones Urine Blood Urine Nitrate Urine Bilirubin Urine Urobilinogen Ur Leukocyte Esterase Urine RBC (Auto) Urine Microscopic WBC Ur Squamous Epith Cells Urine Bacteria Hyaline Casts Complement C3 132.0 Complement C4 27.9 Hep Bs Antigen Negative Hep B Core IgM Ab Negative Hepatitis C Antibody Negative HIV-1 Ab Rapid Screen Anti-Streptolysin O Ab 10/15/18 10/15/18 10/15/18 05:30 05:30 05:30 WBC 4.4 L RBC 3.00 L Hgb 8.1 L Hct 24.0 L MCV 79.9 L MCH 27.1 MCHC 34.0 RDW 14.6 H Plt Count 158 MPV 8.1 Neut % (Auto) 53.1 Lymph % (Auto) 27.1 [place] % (Auto) 17.2 H Eos % (Auto) 2.2 Baso % (Auto) 0.4 Neut # (Auto) 2.3 Lymph # (Auto) 1.2 [place] # (Auto) 0.8 Eos # (Auto) 0.1 Baso # (Auto) 0.0 Sodium 135 Potassium 4.8 Chloride 105 Carbon Dioxide 19 L Anion Gap 16 BUN 35 H Creatinine 4.4 H Est GFR ( Amer) 14 Est GFR (Non-Af Amer) 11 Random Glucose 82 Calcium 8.0 L Phosphorus 5.0 H Magnesium 1.7 Iron TIBC % Saturation Ferritin Vitamin B12 25-OH Vitamin D Total < 12.8 L Folate TSH 3rd Generation 1.63 Urine Color Urine Clarity Urine pH Ur Specific [place] Urine Protein Urine Glucose (UA) Urine Ketones Urine Blood Urine Nitrate Urine Bilirubin Urine Urobilinogen Ur Leukocyte Esterase Urine RBC (Auto) Urine Microscopic WBC Ur Squamous Epith Cells Urine Bacteria Hyaline Casts Complement C3 Complement C4 Hep Bs Antigen Hep B Core IgM Ab Hepatitis C Antibody HIV-1 Ab Rapid Screen Anti-Streptolysin O Ab
[2018-10-15] MEDS ORDERED: Ergocalciferol 50,000 Intl Units Cap PO SCH (19:00)
[2018-10-16] MEDS: Sodium Chloride 0.9% 1,000 ML IV SCH ×2 (06:18→17:01)
[2018-10-16 06:42] LABS: BASO % 0.8 % (0.0-2.0); EOS # 0.1 K/uL (0.0-0.7); EOS % 2.8 % (0.0-4.0); HEMOGLOBIN 7.8 g/dL (12.0-16.0); LYMPH # 1.3 K/uL (1.0-4.3); LYMPH % 35.3 % (20.0-40.0); MEAN CELL VOLUME 80.3 fl (81.0-99.0); MEAN CORPUSCULAR HEMOGLOBIN 26.7 pg (27.0-31.0); MEAN CORPUSCULAR HGB CONC 33.3 g/dL (33.0-37.0); MEAN PLATELET VOLUME 8.1 fl (7.2-11.7); MONO # 0.7 K/uL (0.0-0.8); MONO % 19.1 % (0.0-10.0); NEUT # 1.5 K/uL (1.8-7.0); NRBC % 0.1 % (0.0-0.0); RBC 2.93 Mil/uL (3.80-5.20); RED CELL DISTRIBUTION WIDTH 14.6 % (11.5-14.5); WHITE BLOOD COUNT 3.6 K/uL (4.8-10.8)
[2018-10-16 06:51] LABS: ALB/GLOB RATIO 0.6 (1.0-2.1); ALBUMIN 2.5 g/dL (3.5-5.0)
[2018-10-16] MEDS: Micafungin 100 MG in Sodium Chloride 0.9% 100 ML IV SCH (08:37)
[2018-10-16] MEDS: guaiFENesin 100 mg/5 ml Syrup UD PO PRN ×2 (08:40→21:39)
[2018-10-16] MEDS: Multivitamin Vitamin B Complex (Nephro-Vite) Tab PO SCH (08:40)
[2018-10-16] MEDS: Pantoprazole 40 mg EC Tab PO SCH (08:40)
--- NOTE | 2018-10-16 08:53 | CP.PCM.PN ---
<Tara Ceballos - Last Filed: 10/16/18 16:18> Subjective - Date & Time of Evaluation Date of Evaluation: 10/16/18 Time of Evaluation: 09:09 - Subjective Subjective: Patient was seen and examined this morning breathing comfortably in no acute distress. Patient stated she slept well. She is complaining of itchiness at sites of rash, but denies any fever, chills, n/v or pain. Objective - Vital Signs/Intake and Output Vital Signs (last 24 hours): Temp Pulse Resp BP Pulse Ox 98.0 F 86 18 127/83 97 10/16/18 08:00 10/16/18 08:00 10/16/18 08:00 10/16/18 08:00 10/16/18 08:00 - Medications Medications: Current Medications Acetaminophen (Tylenol 325mg Tab) 650 mg PO Q6 PRN PRN Reason: Pain, Mild (1-3) Last Admin: 10/16/18 01:20 Dose: 650 mg Benzocaine/Menthol (Cepacol Sore Throat) 1 lety PO Q2 PRN PRN Reason: Sore Throat Last Admin: 10/15/18 04:13 Dose: 1 lety Epoetin Lemuel (Procrit) 8,000 unit SC TTS [facility] Last Admin: 10/15/18 13:32 Dose: 8,000 unit Ergocalciferol (Drisdol 50,000 Intl Units Cap) 1 cap PO Q7D [facility] Last Admin: 10/15/18 21:50 Dose: 1 cap Ferrous Gluconate (Fergon) 324 mg PO TID [facility] Last Admin: 10/16/18 08:34 Dose: 324 mg Guaifenesin (Robitussin) 100 mg PO Q4 PRN PRN Reason: Cough Last Admin: 10/16/18 08:40 Dose: 100 mg Heparin Sodium (Porcine) (Heparin) 5,000 units SC Q12 [facility]; Protocol Last Admin: 10/16/18 08:34 Dose: 5,000 units Piperacillin Sod/Tazobactam (Sod 2.25 gm/ Sodium Chloride) 100 mls @ 100 mls/hr IVPB Q8 [facility]; Protocol Last Admin: 10/16/18 00:33 Dose: 100 mls/hr Micafungin Sodium 100 mg/ (Sodium Chloride) 100 mls @ 100 mls/hr IV DAILY [facility] Last Admin: 10/16/18 08:37 Dose: 100 mls/hr Sodium Chloride (Sodium Chloride 0.9%) 1,000 mls @ 75 mls/hr IV .[id number] [facility] Last Admin: 10/16/18 06:18 Dose: 75 mls/hr Pantoprazole Sodium (Protonix Ec Tab) 40 mg PO DAILY [facility] Last Admin: 10/16/18 08:40 Dose: 40 mg Sodium Bicarbonate (Sodium Bicarbonate Tab) 1,300 mg PO BID [facility] Last Admin: 10/16/18 08:41 Dose: 1,300 mg Vitamin B Complex/Vit C/Folic Acid (Nephro-Marah) 1 tab PO DAILY [facility] Last Admin: 10/16/18 08:40 Dose: 1 tab - Labs Labs: 10/16/18 06:00 10/16/18 06:00 - Constitutional Appears: Non-toxic - Head Exam Head Exam: ATRAUMATIC - Eye Exam Eye Exam: EOMI - ENT Exam ENT Exam: Mucous Membranes Dry - Respiratory Exam Respiratory Exam: Clear to Ausculation Bilateral. absent: Rhonchi, Wheezes - Cardiovascular Exam Cardiovascular Exam: RRR, +S1, +S2 - GI/Abdominal Exam GI & Abdominal Exam: Soft, Normal Bowel Sounds. absent: Rigid, Tenderness - Neurological Exam Neurological Exam: Alert, Awake, Oriented x3 - Psychiatric Exam Psychiatric exam: Normal Mood - Skin Additional comments: Large, round erythematous, dry raised scal rash on right cheek, right wrist & right sided abdomen. Assessment and Plan - Assessment and Plan (Free Text) Assessment: 38 yo F with no known medical history, who presented with cough and fungal-like rash x 3 weeks found to be in renal failure with positive rapid HIV test. 1. 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 -Possible renal biopsy tomorrow. -1 prbc ordered ( H & H today is 7.8/23.6, decreased from 9.4/27.9 on 10/14/2018 with goal of 9-10 prior to biopsy as per Dr. Cheema) - Renal US: Impression: mild fullness of B/L renal pelvis - BUN/Cr 35/4.4 yesterday with BUN/Cr 36/4.7 today & GFR of 11/ -Continue gentle hydration. -Hepatitis panel neg. C3 & C4 wnl. -Vitamin D <12.8, phosphorus- 5H, mag- 1.7N. 2. Rapid HIV positive - FU, confirmatory test ordered - ID on board, pending recs -f/u viral load, genotype and CD4 count 3. 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 Carmona - Continue micafungin IV 100 mg daily & zosyn IVP Q8hrs 4. Anemia - Unknown etiology; may be secondary to kidney disease - Asymptomatic -Transfuse 1 unit of PRBC today before renal biopsy tomorrow. -Iron 54, TIBC 137, ferritin 547 -Vitamin b 12: 345 5. Upper Respiratory Symptoms - Sputum culture- negative for Group A strep - Blood culture: no growth after 24 hours 6. Diet - Regular diet 7. GI Prophylaxis - Continue protonix 8. DVT Prophylaix - Continue heparin Q12 <Fernie Johnson D - Last Filed: 10/16/18 19:38> Objective - Vital Signs/Intake and Output Vital Signs (last 24 hours): Temp Pulse Resp BP Pulse Ox 98.6 F 89 19 145/97 H 99 10/16/18 19:36 10/16/18 19:36 10/16/18 19:36 10/16/18 19:36 10/16/18 19:36 Intake and Output: 10/16/18 10/17/18 18:59 06:59 Intake Total 2585 Balance 2585 - Medications Medications: Current Medications Acetaminophen (Tylenol 325mg Tab) 650 mg PO Q6 PRN PRN Reason: Pain, Mild (1-3) Last Admin: 10/16/18 01:20 Dose: 650 mg Benzocaine/Menthol (Cepacol Sore Throat) 1 lety PO Q2 PRN PRN Reason: Sore Throat Last Admin: 10/15/18 04:13 Dose: 1 lety Epoetin Lemuel (Procrit) 8,000 unit SC TTS [facility] Last Admin: 10/15/18 13:32 Dose: 8,000 unit Ergocalciferol (Drisdol 50,000 Intl Units Cap) 1 cap PO Q7D [facility] Last Admin: 10/15/18 21:50 Dose: 1 cap Ferrous Gluconate (Fergon) 324 mg PO TID [facility] Last Admin: 10/16/18 16:58 Dose: 324 mg Guaifenesin (Robitussin) 100 mg PO Q4 PRN PRN Reason: Cough Last Admin: 10/16/18 08:40 Dose: 100 mg Heparin Sodium (Porcine) (Heparin) 5,000 units SC Q12 [facility]; Protocol Last Admin: 10/16/18 08:34 Dose: 5,000 units Piperacillin Sod/Tazobactam (Sod 2.25 gm/ Sodium Chloride) 100 mls @ 100 mls/hr IVPB Q8 [facility]; Protocol Last Admin: 10/16/18 17:00 Dose: Not Given Micafungin Sodium 100 mg/ (Sodium Chloride) 100 mls @ 100 mls/hr IV DAILY [facility] Last Admin: 10/16/18 08:37 Dose: 100 mls/hr Sodium Chloride (Sodium Chloride 0.9%) 1,000 mls @ 50 mls/hr IV .Q20H [facility] Stop: 10/17/18 12:57 Last Admin: 10/16/18 17:01 Dose: 50 mls/hr Pantoprazole Sodium (Protonix Ec Tab) 40 mg PO DAILY [facility] Last Admin: 10/16/18 08:40 Dose: 40 mg Sodium Bicarbonate (Sodium Bicarbonate Tab) 1,300 mg PO BID [facility] Last Admin: 10/16/18 16:59 Dose: 1,300 mg Vitamin B Complex/Vit C/Folic Acid (Nephro-Marah) 1 tab PO DAILY [facility] Last Admin: 10/16/18 08:40 Dose: 1 tab - Labs Labs: 10/16/18 06:00 10/16/18 06:00 Attending/Attestation - Attestation I have personally seen and examined this patient.: Yes I have fully participated in the care of the patient.: Yes I have reviewed all pertinent clinical information, including history, physical exam and plan: Yes Notes (Text): 10/16/18 19:38 Patient seen and examined with resident. Case discussed and agreed with assessment.
[2018-10-16] MEDS ORDERED: Desmopressin 15 MCG in Sodium Chloride 0.9% 50 ML IVPB ONE (10:15)
--- NOTE | 2018-10-16 12:55 | CP.PCM.PN ---
Subjective - Date & Time of Evaluation Date of Evaluation: 10/16/18 Time of Evaluation: 12:54 - Subjective Subjective: Nephrology Consultation Note: Assessment: Stable Acute Kidney Injury (N17.9) ? etiology ? HIVAN Anemia (D64.9) HIV + UTI ? thrush proteinuria acidosis, vit d def Plan No acute need for renal replacement therapy at this time. Hypertension control with meds as ordered. Maintain hemodynamics stable. Avoid hypotension. Patient not on ACEI/ARB due to recent ANTONINA Monitor Input/Output, daily weights and renal function with basic metabolic panel started iron, MVI and epogen lower IVF ID following recommend kidney biopsy. check type/screen. transfuse PRBC to target Hb atleast 9-10 prior to biopsy. IR consulted started bicarb and weekly vit D pt was explained about biopsy and given educational material about it Check urine analysis, spot protein/creatinine, albumin/creatinine ratio, urine for eosinophils. renal sonogram Check GN work up as C3, C4, LEXI, Anti dsDNA, ASO titers, ANCA (MPO and DC-3), Anti GBM antibody, HIV/Hep B and Hep C serology Anemia work up with TSAT/Ferritin/Vitamin B12/folate Check for 25-OH vitamin D, iPTH, phosphorus level. Dose meds/antibiotics for reduced GFR. Avoid fleets enema/magnesium based laxatives. Avoid nephrotoxins/NSAIDs/ iodinated contrast (unless needed emergently) Glycemic control Further work up/management as per primary team Thanks for allowing me to participate in care of your patient. Will follow patient with you. Please call if any Qs Dr Seth Cheema Office: [phone] Chief Complaint; cough Reason for consult: Acute Kidney Injury HPI: Pt is a 38 F obese with out known medical hx presented with complaints of cough/sore throat and skin rash. found to have HIV + and ANTONINA hence renal consulted Denies OTC/herbal meds but reported use of NSAIDs No recent iodinated contrast exposure. No obvious episodes of low BP. she feels better ROS: used language line Cardiovascular: No chest pain. Pulmonary: No shortness of breath Gastrointestinal: denies abdominal pain No nausea. No vomiting. Genitourinary: No pain while urinating. Denies blood in urine. All other negative except as mentioned in HPI Physical Examination: General Appearance: Comfortable, in no acute respiratory distress, co-operative . obese Vitals reviewed and noted as below Head; Atraumatic, normocephalic ENT: no ulcers no thrush. Tongue is midline. Oropharynx: no rash or ulcers. Rt facial hyperpigmented rash+ EYES: Pupils are equal, round and reactive to light accommodation. Eye muscles and extraocular movement intact. Sclera is anicteric. Neck; supple no lymphadenopathy, no thyromegaly or bruit Lungs: Normal respiratory rate/effort. Breath sounds bilateral equal and clear Heart: Normal rate. s1s2 normal. No rub or gallop. Extremities: no edema. No varicose veins Neurological: Patient is alert, awake and oriented to person, place and time. No focal deficit. Strength bilateral appropriate and equal Skin: Warm and dry. Normal turgor. No rash. Palpitation: Normal elasticity for age Abdomen: Abdomen is soft. Bowel sounds +. There is no abdominal tenderness, no guarding/rigidity no organomegaly Psych: normal insight and normal affect/mood MSK: no joint tenderness or swelling. Digits and nails normal, no deformity : kidney or bladder not palpable Labs/imaging reviewed. Past medical history, past surgical history, family history, social history, allergy reviewed and noted as below Family hx: no hx of CKD. Rest non-contributory Objective - Vital Signs/Intake and Output Vital Signs (last 24 hours): Temp Pulse Resp BP Pulse Ox 98.0 F 86 18 127/83 97 10/16/18 08:00 10/16/18 09:00 10/16/18 08:00 10/16/18 08:00 10/16/18 08:00 - Medications Medications: Current Medications Acetaminophen (Tylenol 325mg Tab) 650 mg PO Q6 PRN PRN Reason: Pain, Mild (1-3) Last Admin: 10/16/18 01:20 Dose: 650 mg Benzocaine/Menthol (Cepacol Sore Throat) 1 lety PO Q2 PRN PRN Reason: Sore Throat Last Admin: 10/15/18 04:13 Dose: 1 lety Epoetin Lemuel (Procrit) 8,000 unit SC TTS [facility] Last Admin: 10/15/18 13:32 Dose: 8,000 unit Ergocalciferol (Drisdol 50,000 Intl Units Cap) 1 cap PO Q7D [facility] Last Admin: 10/15/18 21:50 Dose: 1 cap Ferrous Gluconate (Fergon) 324 mg PO TID [facility] Last Admin: 10/16/18 08:34 Dose: 324 mg Guaifenesin (Robitussin) 100 mg PO Q4 PRN PRN Reason: Cough Last Admin: 10/16/18 08:40 Dose: 100 mg Heparin Sodium (Porcine) (Heparin) 5,000 units SC Q12 [facility]; Protocol Last Admin: 10/16/18 08:34 Dose: 5,000 units Piperacillin Sod/Tazobactam (Sod 2.25 gm/ Sodium Chloride) 100 mls @ 100 mls/hr IVPB Q8 [facility]; Protocol Last Admin: 10/16/18 10:39 Dose: 100 mls/hr Micafungin Sodium 100 mg/ (Sodium Chloride) 100 mls @ 100 mls/hr IV DAILY [facility] Last Admin: 10/16/18 08:37 Dose: 100 mls/hr Sodium Chloride (Sodium Chloride 0.9%) 1,000 mls @ 75 mls/hr IV .[id number] [facility] Last Admin: 10/16/18 06:18 Dose: 75 mls/hr Pantoprazole Sodium (Protonix Ec Tab) 40 mg PO DAILY [facility] Last Admin: 10/16/18 08:40 Dose: 40 mg Sodium Bicarbonate (Sodium Bicarbonate Tab) 1,300 mg PO BID [facility] Last Admin: 10/16/18 08:41 Dose: 1,300 mg Vitamin B Complex/Vit C/Folic Acid (Nephro-Marah) 1 tab PO DAILY [facility] Last Admin: 10/16/18 08:40 Dose: 1 tab - Labs Labs: 10/16/18 06:00 10/16/18 06:00
[2018-10-17 05:46] LABS: HEMOGLOBIN 8.5 g/dL (12.0-16.0); MEAN CELL VOLUME 79.4 fl (81.0-99.0); MEAN CORPUSCULAR HEMOGLOBIN 26.2 pg (27.0-31.0); RBC 3.24 Mil/uL (3.80-5.20)
[2018-10-17 05:57] LABS: CALCIUM 7.9 mg/dL (8.4-10.2)
[2018-10-17 06:13] LABS: PROTHROMBIN TIME 11.5 Seconds (9.8-13.1)
[2018-10-17 06:16] LABS: PARTIAL THROMBOPLASTIN TIME 31.3 Seconds (25.6-37.1)
--- NOTE | 2018-10-17 08:31 | CP.PCM.PN ---
<Sultan Daniel - Last Filed: 10/17/18 12:36> Subjective - Date & Time of Evaluation Date of Evaluation: 10/17/18 Time of Evaluation: 10:05 - Subjective Subjective: Patient seen and examined this morning. No acute overnight events. Afebrile with stable vitals. Patient reports cough and itching at the sites of rash. Denies any abdominal pain, nausea, vomiting or chest pain. NPO for renal biopsy today. Objective - Vital Signs/Intake and Output Vital Signs (last 24 hours): Temp Pulse Resp BP Pulse Ox 99.1 F 95 H 20 141/93 H 96 10/17/18 04:58 10/17/18 04:58 10/17/18 04:58 10/17/18 04:58 10/17/18 04:58 - Medications Medications: Current Medications Acetaminophen (Tylenol 325mg Tab) 650 mg PO Q6 PRN PRN Reason: Pain, Mild (1-3) Last Admin: 10/16/18 01:20 Dose: 650 mg Benzocaine/Menthol (Cepacol Sore Throat) 1 lety PO Q2 PRN PRN Reason: Sore Throat Last Admin: 10/15/18 04:13 Dose: 1 lety Epoetin Lemuel (Procrit) 8,000 unit SC TTS [facility] Last Admin: 10/15/18 13:32 Dose: 8,000 unit Ergocalciferol (Drisdol 50,000 Intl Units Cap) 1 cap PO Q7D [facility] Last Admin: 10/15/18 21:50 Dose: 1 cap Ferrous Gluconate (Fergon) 324 mg PO TID [facility] Last Admin: 10/16/18 16:58 Dose: 324 mg Guaifenesin (Robitussin) 100 mg PO Q4 PRN PRN Reason: Cough Last Admin: 10/16/18 21:39 Dose: 100 mg Heparin Sodium (Porcine) (Heparin) 5,000 units SC Q12 [facility]; Protocol Last Admin: 10/16/18 08:34 Dose: 5,000 units Piperacillin Sod/Tazobactam (Sod 2.25 gm/ Sodium Chloride) 100 mls @ 100 mls/hr IVPB Q8 [facility]; Protocol Last Admin: 10/17/18 00:00 Dose: 100 mls/hr Micafungin Sodium 100 mg/ (Sodium Chloride) 100 mls @ 100 mls/hr IV DAILY [facility] Last Admin: 10/16/18 08:37 Dose: 100 mls/hr Sodium Chloride (Sodium Chloride 0.9%) 1,000 mls @ 50 mls/hr IV .Q20H [facility] Stop: 10/17/18 12:57 Last Admin: 10/16/18 17:01 Dose: 50 mls/hr Pantoprazole Sodium (Protonix Ec Tab) 40 mg PO DAILY [facility] Last Admin: 10/16/18 08:40 Dose: 40 mg Sodium Bicarbonate (Sodium Bicarbonate Tab) 1,300 mg PO BID [facility] Last Admin: 10/16/18 16:59 Dose: 1,300 mg Vitamin B Complex/Vit C/Folic Acid (Nephro-Marah) 1 tab PO DAILY [facility] Last Admin: 10/16/18 08:40 Dose: 1 tab - Labs Labs: 10/17/18 04:55 10/17/18 04:55 PT 11.5 Seconds (9.8-13.1) 10/17/18 04:55 INR 1.0 10/17/18 04:55 APTT 31.3 Seconds (25.6-37.1) 10/17/18 04:55 - Constitutional Appears: Non-toxic, No Acute Distress - Head Exam Head Exam: NORMAL INSPECTION - Eye Exam Eye Exam: EOMI - ENT Exam ENT Exam: Mucous Membranes Moist - Respiratory Exam Respiratory Exam: Clear to Ausculation Bilateral, NORMAL BREATHING PATTERN. absent: Rhonchi, Wheezes, Respiratory Distress - Cardiovascular Exam Cardiovascular Exam: REGULAR RHYTHM, +S1, +S2 - GI/Abdominal Exam GI & Abdominal Exam: Soft, Normal Bowel Sounds. absent: Tenderness - Extremities Exam Extremities Exam: Normal Inspection. absent: Calf Tenderness - Neurological Exam Neurological Exam: Alert, Awake, Oriented x3 - Psychiatric Exam Psychiatric exam: Normal Affect, Normal Mood - Skin Additional comments: Large, round faint erythematous, dry raised scaly rash on right cheek, right wrist & right sided abdomen. Assessment and Plan - Assessment and Plan (Free Text) Assessment: 38 yo F with no known medical history, who presented with cough and fungal-like rash x 3 weeks found to be in renal failure with positive rapid HIV test. Patient is to undergo renal biopsy today by IR. 1. 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 -Possible renal biopsy tomorrow. - additional 1 prbc ordered ( H & H today is 8.5/25.7, with goal of 9-10 prior to biopsy as per Dr. Cheema) - Renal US: Impression: mild fullness of B/L renal pelvis - BUN/Cr 42/4.9 with GFR of 10 -Continue gentle hydration. -Hepatitis panel neg. C3 & C4 wnl. -Vitamin D <12.8, phosphorus- 5H, mag- 1.7N. 2. Rapid HIV positive - FU, confirmatory test ordered - ID on board, pending recs -f/u viral load, genotype and CD4 count 3. 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 Carmona - Continue micafungin IV 100 mg daily & zosyn IVP Q8hrs 4. Anemia - Unknown etiology; may be secondary to kidney disease - Asymptomatic -Transfused 2units PRBC in total before renal biopsy today. -Iron 54, TIBC 137, ferritin 547 -Vitamin b 12: 345 5. Upper Respiratory Symptoms - Sputum culture- negative for Group A strep - Blood culture: no growth after 24 hours 6. Diet - Regular diet 7. GI Prophylaxis - Continue protonix 8. DVT Prophylaix - Continue heparin Q12 <Fernie Johnson D - Last Filed: 10/17/18 14:40> Objective - Vital Signs/Intake and Output Vital Signs (last 24 hours): Temp Pulse Resp BP Pulse Ox 98.7 F 74 20 148/93 H 97 10/17/18 14:20 10/17/18 14:20 10/17/18 14:20 10/17/18 14:20 10/17/18 14:20 Intake and Output: 10/17/18 10/17/18 06:59 18:59 Intake Total 385 Balance 385 - Medications Medications: Current Medications Acetaminophen (Tylenol 325mg Tab) 650 mg PO Q6 PRN PRN Reason: Pain, Mild (1-3) Last Admin: 10/16/18 01:20 Dose: 650 mg Benzocaine/Menthol (Cepacol Sore Throat) 1 lety PO Q2 PRN PRN Reason: Sore Throat Last Admin: 10/15/18 04:13 Dose: 1 lety Benzonatate (Tessalon Perles) 100 mg PO Q12 [facility] Epoetin Lemuel (Procrit) 8,000 unit SC TTS [facility] Last Admin: 10/15/18 13:32 Dose: 8,000 unit Ergocalciferol (Drisdol 50,000 Intl Units Cap) 1 cap PO Q7D [facility] Last Admin: 10/15/18 21:50 Dose: 1 cap Ferrous Gluconate (Fergon) 324 mg PO TID [facility] Last Admin: 10/16/18 16:58 Dose: 324 mg Guaifenesin (Robitussin) 100 mg PO Q4 PRN PRN Reason: Cough Last Admin: 10/16/18 21:39 Dose: 100 mg Heparin Sodium (Porcine) (Heparin) 5,000 units SC Q12 [facility]; Protocol Last Admin: 10/16/18 08:34 Dose: 5,000 units Piperacillin Sod/Tazobactam (Sod 2.25 gm/ Sodium Chloride) 100 mls @ 100 mls/hr IVPB Q8 [facility]; Protocol Last Admin: 10/17/18 00:00 Dose: 100 mls/hr Micafungin Sodium 100 mg/ (Sodium Chloride) 100 mls @ 100 mls/hr IV DAILY [facility] Last Admin: 10/16/18 08:37 Dose: 100 mls/hr Ondansetron HCl (Zofran Inj) 4 mg IVP ONCE PRN PRN Reason: Nausea/Vomiting Stop: 10/17/18 15:25 Pantoprazole Sodium (Protonix Ec Tab) 40 mg PO DAILY [facility] Last Admin: 10/16/18 08:40 Dose: 40 mg Sodium Bicarbonate (Sodium Bicarbonate Tab) 1,300 mg PO BID [facility] Last Admin: 10/16/18 16:59 Dose: 1,300 mg Vitamin B Complex/Vit C/Folic Acid (Nephro-Marah) 1 tab PO DAILY [facility] Last Admin: 10/16/18 08:40 Dose: 1 tab Zinc Acetate/Diphenhydramine (Benadryl 1% Zinc Acetate -0.1%) 1 applic TOP Q12 [facility] - Labs Labs: 10/17/18 04:55 10/17/18 04:55 PT 11.5 Seconds (9.8-13.1) 10/17/18 04:55 INR 1.0 10/17/18 04:55 APTT 31.3 Seconds (25.6-37.1) 10/17/18 04:55 Attending/Attestation - Attestation I have personally seen and examined this patient.: Yes I have fully participated in the care of the patient.: Yes I have reviewed all pertinent clinical information, including history, physical exam and plan: Yes Notes (Text): 10/17/18 14:39 Patient seen and examined with resident. Case discussed and agreed with assessment and plan.
[2018-10-17] MEDS: Pantoprazole 40 mg EC Tab PO SCH (10:00)
[2018-10-17] MEDS ORDERED: Desmopressin 4 mcg/ml Inj (10 ml) IVPB ONE (10:08)
[2018-10-17] MEDS ORDERED: Lidocaine 1% Inj (20ml) ONE (12:47)
[2018-10-17] MEDS ORDERED: Midazolam 2 MG/2 ML VIAL ONE (12:55)
[2018-10-17] MEDS ORDERED: Propofol 10 mg/ml Inj (20 ML) ONE (12:55)
[2018-10-17] MEDS ORDERED: Absorbable Gelatin Sponge Size 12-7 ONE (13:10)
--- NOTE | 2018-10-17 13:24 | PCM.SURG1 ---
Surgeon's Initial Post Op Note - Surgeon's Notes Surgeon: Vlad Servin MD Grade Teacher: NONE Type of Anesthesia: IV Sedation Pre-Operative Diagnosis: Renal insufficiency Operative Findings: US showed an echogenic left kidney. Post-Operative Diagnosis: Renal insufficiency Operation Performed: US guided core biopsy of left kidney. Three 18-g core specimen sent for routine histology. Biopsy tract embolized with gelfoam. Specimen/Specimens Removed: 18 gauge core x 3 Estimated Blood Loss: EBL {In ML}: 2 Blood Products Given: N/A Drains Used: No Drains Post-Op Condition: Fair Date of Surgery/Procedure: 10/17/18 Time of Surgery/Procedure: 13:20
--- NOTE | 2018-10-17 13:30 | CT ---
PROCEDURE: Date of procedure: 10/17/2018 Procedure: Ultrasound-guided left renal biopsy, CPT 19783 Ultrasound guidance for biopsy, [id number] Medication: 8 cc 2% Lidocaine, patient received IV sedation by the anesthesiologist along with physiologic monitoring. HISTORY: Renal insufficiency TECHNIQUE: Following informed consent and procedure time-out, the patient was placed prone on the interventional table and a limited ultrasound showed slightly echogenic left kidney consistent with medical renal disease. There is no hydronephrosis or mass. The patient left back was prepped and draped in the usual sterile fashion. After patient sedated by the anesthesiologist and the skin anesthetized with lidocaine, an 18 gauge core needle was advanced percutaneously towards the lower pole cortex. Upon confirmation of needle position, three-18 gauge core specimens were obtained and sent for routine pathology. The biopsy tract was then embolized with Gelfoam. A post biopsy ultrasound showed no hematoma. There were no immediate complications. IMPRESSION: Ultrasound-guided left renal biopsy.
[2018-10-17] MEDS: Multivitamin Vitamin B Complex (Nephro-Vite) Tab PO SCH (14:43)
[2018-10-17] MEDS: Diphenhydramine 1% CREAM TOP SCH ×2 (15:15→22:06)
[2018-10-17] MEDS: Micafungin 100 MG in Sodium Chloride 0.9% 100 ML IV SCH (15:17)
[2018-10-17] MEDS: Sodium Chloride 0.9% 1,000 ML IV SCH (15:20)
[2018-10-17 22:29] LABS: HIV 1&2 ANTIBODY REACTIVE (NEGATIVE)
[2018-10-18 05:20] LABS: BASO % 0.4 % (0.0-2.0); EOS # 0.2 K/uL (0.0-0.7); EOS % 3.7 % (0.0-4.0); HEMOGLOBIN 9.3 g/dL (12.0-16.0); LYMPH # 1.6 K/uL (1.0-4.3); LYMPH % 36.2 % (20.0-40.0); MEAN CELL VOLUME 79.8 fl (81.0-99.0); MEAN CORPUSCULAR HEMOGLOBIN 26.7 pg (27.0-31.0); MEAN CORPUSCULAR HGB CONC 33.4 g/dL (33.0-37.0); MONO # 0.5 K/uL (0.0-0.8); MONO % 11.3 % (0.0-10.0); NEUT # 2.1 K/uL (1.8-7.0); NEUT % 48.4 % (50.0-75.0); NRBC % 0.1 % (0.0-0.0); RBC 3.48 Mil/uL (3.80-5.20); RED CELL DISTRIBUTION WIDTH 15.6 % (11.5-14.5); WHITE BLOOD COUNT 4.4 K/uL (4.8-10.8)
[2018-10-18 05:38] LABS: ALB/GLOB RATIO 0.7 (1.0-2.1); ALBUMIN 2.6 g/dL (3.5-5.0); CALCIUM 8.3 mg/dL (8.4-10.2)
--- NOTE | 2018-10-18 10:26 | CP.PCM.PN ---
Subjective - Date & Time of Evaluation Date of Evaluation: 10/18/18 Time of Evaluation: 10:26 - Subjective Subjective: Patient feeling good no nausea no vomiting Chest pain no dysuria Patient very poor historian to give detail was going on what medication she had before she came if any Objective - Vital Signs/Intake and Output Vital Signs (last 24 hours): Temp Pulse Resp BP Pulse Ox 98.1 F 79 18 132/88 94 L 10/18/18 07:59 10/18/18 07:59 10/18/18 07:59 10/18/18 07:59 10/18/18 07:59 - Medications Medications: Current Medications Acetaminophen (Tylenol 325mg Tab) 650 mg PO Q6 PRN PRN Reason: Pain, Mild (1-3) Last Admin: 10/18/18 01:56 Dose: 650 mg Benzocaine/Menthol (Cepacol Sore Throat) 1 lety PO Q2 PRN PRN Reason: Sore Throat Last Admin: 10/15/18 04:13 Dose: 1 lety Benzonatate (Tessalon Perles) 100 mg PO Q12 [facility] Last Admin: 10/17/18 22:06 Dose: 100 mg Calcitriol (Rocaltrol) 0.25 mcg PO DAILY [facility] Epoetin Lemuel (Procrit) 8,000 unit SC TTS [facility] Last Admin: 10/15/18 13:32 Dose: 8,000 unit Ergocalciferol (Drisdol 50,000 Intl Units Cap) 1 cap PO Q7D [facility] Last Admin: 10/15/18 21:50 Dose: 1 cap Ferrous Gluconate (Fergon) 324 mg PO TID [facility] Last Admin: 10/17/18 18:32 Dose: 324 mg Guaifenesin (Robitussin) 100 mg PO Q4 PRN PRN Reason: Cough Last Admin: 10/16/18 21:39 Dose: 100 mg Heparin Sodium (Porcine) (Heparin) 5,000 units SC Q12 [facility]; Protocol Last Admin: 10/17/18 22:06 Dose: 5,000 units Micafungin Sodium 100 mg/ (Sodium Chloride) 100 mls @ 100 mls/hr IV DAILY [facility] Last Admin: 10/17/18 15:17 Dose: 100 mls/hr Pantoprazole Sodium (Protonix Ec Tab) 40 mg PO DAILY [facility] Last Admin: 10/17/18 10:00 Dose: Not Given Sevelamer HCl (Renagel) 800 mg PO TID [facility] Sodium Bicarbonate (Sodium Bicarbonate Tab) 1,300 mg PO BID [facility] Last Admin: 10/17/18 18:32 Dose: 1,300 mg Vitamin B Complex/Vit C/Folic Acid (Nephro-Marah) 1 tab PO DAILY [facility] Last Admin: 10/17/18 14:43 Dose: Not Given Zinc Acetate/Diphenhydramine (Benadryl 1% Zinc Acetate -0.1%) 1 applic TOP Q12 [facility] Last Admin: 10/17/18 22:06 Dose: 1 applic - Labs Labs: 10/18/18 04:30 10/18/18 04:30 PT 11.5 Seconds (9.8-13.1) 10/17/18 04:55 INR 1.0 10/17/18 04:55 APTT 31.3 Seconds (25.6-37.1) 10/17/18 04:55 - Constitutional Appears: No Acute Distress - Eye Exam Eye Exam: Conjunctival injection - ENT Exam ENT Exam: Mucous Membranes Dry - Neck Exam Neck Exam: absent: Lymphadenopathy - Respiratory Exam Respiratory Exam: NORMAL BREATHING PATTERN. absent: Rales - GI/Abdominal Exam GI & Abdominal Exam: Soft, Normal Bowel Sounds. absent: Guarding - Extremities Exam Extremities Exam: absent: Calf Tenderness - Back Exam Back Exam: absent: CVA tenderness (L), CVA tenderness (R) - Neurological Exam Neurological Exam: Alert - Psychiatric Exam Psychiatric exam: Normal Affect - Skin Skin Exam: absent: Cyanosis Assessment and Plan (1) Acute renal failure (ARF) Assessment & Plan: Acute renal failure not sure if this is superimposed on chronic kidney disease? Probably secondary to HIV Because the patient never had checkup before or even seen or had any blood test in the past as far as I can tell from the history. 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
[2018-10-18 10:32] LABS: % CD4 (T HELPER CELL) 1 Percent (30-61); % CD8 (SUPPRESSOR T CELL) 70 Percent (12-42); ABSOLUTE CD4 CELLS <20 Cells/mcL (490-1740); ABSOLUTE CD8 CELLS 629 Cells/mcL (180-1170); ABSOLUTE LYMPHOCYTES 902 Cells/mcL (850-3900); HELPER/SUPPRESSOR RATIO 0.01 Ratio (0.86-5.00)
[2018-10-18] MEDS ORDERED: Sodium Chloride 0.9% 1,000 ML IV SCH (11:45)
--- NOTE | 2018-10-18 11:46 | CP.PCM.PN ---
<ColemanSultan - Last Filed: 10/18/18 11:43> Subjective - Date & Time of Evaluation Date of Evaluation: 10/18/18 Time of Evaluation: 09:35 - Subjective Subjective: Patient seen and examined this morning. No acute overnight events. Has been afebrile with stable vitals. Patient had renal biopsy yesterday and states she had hematuria last night. Denies any abdominal pain, dysuria, nausea, vomiting or dizziness. Objective - Vital Signs/Intake and Output Vital Signs (last 24 hours): Temp Pulse Resp BP Pulse Ox 98.1 F 79 18 132/88 94 L 10/18/18 07:59 10/18/18 07:59 10/18/18 07:59 10/18/18 07:59 10/18/18 07:59 - Medications Medications: Current Medications Acetaminophen (Tylenol 325mg Tab) 650 mg PO Q6 PRN PRN Reason: Pain, Mild (1-3) Last Admin: 10/18/18 01:56 Dose: 650 mg Benzocaine/Menthol (Cepacol Sore Throat) 1 lety PO Q2 PRN PRN Reason: Sore Throat Last Admin: 10/15/18 04:13 Dose: 1 lety Benzonatate (Tessalon Perles) 100 mg PO Q12 [facility] Last Admin: 10/17/18 22:06 Dose: 100 mg Calcitriol (Rocaltrol) 0.25 mcg PO DAILY [facility] Epoetin Lemuel (Procrit) 8,000 unit SC TTS [facility] Last Admin: 10/15/18 13:32 Dose: 8,000 unit Ergocalciferol (Drisdol 50,000 Intl Units Cap) 1 cap PO Q7D [facility] Last Admin: 10/15/18 21:50 Dose: 1 cap Ferrous Gluconate (Fergon) 324 mg PO TID [facility] Last Admin: 10/17/18 18:32 Dose: 324 mg Guaifenesin (Robitussin) 100 mg PO Q4 PRN PRN Reason: Cough Last Admin: 10/16/18 21:39 Dose: 100 mg Heparin Sodium (Porcine) (Heparin) 5,000 units SC Q12 [facility]; Protocol Last Admin: 10/17/18 22:06 Dose: 5,000 units Micafungin Sodium 100 mg/ (Sodium Chloride) 100 mls @ 100 mls/hr IV DAILY [facility] Last Admin: 10/17/18 15:17 Dose: 100 mls/hr Sodium Chloride (Sodium Chloride 0.9%) 1,000 mls @ 40 mls/hr IV .Q24H [facility] Stop: 10/19/18 11:42 Pantoprazole Sodium (Protonix Ec Tab) 40 mg PO DAILY [facility] Last Admin: 10/17/18 10:00 Dose: Not Given Sevelamer HCl (Renagel) 800 mg PO TID [facility] Sodium Bicarbonate (Sodium Bicarbonate Tab) 1,300 mg PO BID [facility] Last Admin: 10/17/18 18:32 Dose: 1,300 mg Vitamin B Complex/Vit C/Folic Acid (Nephro-Marah) 1 tab PO DAILY [facility] Last Admin: 10/17/18 14:43 Dose: Not Given Zinc Acetate/Diphenhydramine (Benadryl 1% Zinc Acetate -0.1%) 1 applic TOP Q12 [facility] Last Admin: 10/17/18 22:06 Dose: 1 applic - Labs Labs: 10/18/18 04:30 10/18/18 04:30 PT 11.5 Seconds (9.8-13.1) 10/17/18 04:55 INR 1.0 10/17/18 04:55 APTT 31.3 Seconds (25.6-37.1) 10/17/18 04:55 - Constitutional Appears: Non-toxic, No Acute Distress - Head Exam Head Exam: NORMAL INSPECTION - Eye Exam Eye Exam: EOMI, Normal appearance - ENT Exam ENT Exam: Mucous Membranes Moist - Neck Exam Neck Exam: Full ROM. absent: Lymphadenopathy - Respiratory Exam Respiratory Exam: Clear to Ausculation Bilateral, NORMAL BREATHING PATTERN. absent: Rhonchi, Wheezes, Respiratory Distress - Cardiovascular Exam Cardiovascular Exam: REGULAR RHYTHM, +S1, +S2 - GI/Abdominal Exam GI & Abdominal Exam: Soft, Normal Bowel Sounds. absent: Tenderness - Extremities Exam Extremities Exam: Normal Inspection. absent: Calf Tenderness - Neurological Exam Neurological Exam: Alert, Awake, Oriented x3 - Psychiatric Exam Psychiatric exam: Normal Affect, Normal Mood - Skin Additional comments: Improved large, round faint erythematous, dry raised scaly rash on right cheek, and right wrist. Assessment and Plan - Assessment and Plan (Free Text) Assessment: 38 yo F with no known medical history, who presented with cough and fungal-like rash x 3 weeks found to be in renal failure with newly diagnosed HIV+. Patient had renal biopsy yesterday. 1. 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 -s/p renal biopsy yesterday. -s/p 2 units of PRBC -Renal US on 10/14/18: Impression: mild fullness of B/L renal pelvis -Worsening BUN/Cr 44/5.6 with GFR of 9 today from BUN/Cr 42/4.9 with GFR of 10 -Continue gentle hydration at 40 cc/hr -Hepatitis panel neg. C3 & C4 wnl. 2. AIDS - ID on board, pending recs - CD4: <20 3. 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 Carmona - Continue micafungin IV 100 mg daily (day 01/20) -D/C zosyn (received for 4 days). 4. Anemia - Unknown etiology; may be secondary to kidney disease - Asymptomatic -Transfused 2units PRBC in total before renal biopsy -Iron 54, TIBC 137, ferritin 547 -Vitamin b 12: 345 5. Upper Respiratory Symptoms - Sputum culture- negative for Group A strep - Blood culture: no growth after 3 days. 6. Diet - Regular diet 7. GI Prophylaxis - Continue protonix 8. DVT Prophylaix - Continue heparin Q12 <Megah Franco - Last Filed: 10/18/18 19:56> Objective - Vital Signs/Intake and Output Vital Signs (last 24 hours): Temp Pulse Resp BP Pulse Ox 98.8 F 74 17 134/88 98 10/18/18 15:46 10/18/18 15:46 10/18/18 15:46 10/18/18 15:46 10/18/18 15:46 - Labs Labs: 10/18/18 14:10 10/18/18 04:30 PT 11.5 Seconds (9.8-13.1) 10/17/18 04:55 INR 1.0 10/17/18 04:55 APTT 31.3 Seconds (25.6-37.1) 10/17/18 04:55 Attending/Attestation - Attestation I have personally seen and examined this patient.: Yes I have fully participated in the care of the patient.: Yes I have reviewed all pertinent clinical information, including history, physical exam and plan: Yes Notes (Text): Acute Renal 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
--- NOTE | 2018-10-18 13:02 | CP.PCM.DIS ---
<Sultan Daniel - Last Filed: 10/18/18 17:00> Provider - Provider Date of Admission: 10/14/18 17:39 Attending physician: Fernie Johnson MD Consults: 10/14/18 17:10 Nephrology Consult Stat Comment: Consulting Provider: Babatunde Mckinney Consulting Physician: Babatunde Mckinney Reason for Consult: ARF 10/14/18 17:50 Infectious Disease Consult Stat Comment: Consulting Provider: Yaya Carmona Consulting Physician: Yaya Carmona Reason for Consult: dissiminated fungal infection 10/17/18 08:00 Physician Consult Routine Comment: Consulting Provider: Vlad Servin Consulting Physician: Vlad Servin Reason for Consult: CT guided kidney biopsy Time Spent in preparation of Discharge (in minutes): 40 Diagnosis - Discharge Diagnosis (1) Acute renal failure (ARF) Status: Acute (2) AIDS (acquired immunodeficiency syndrome), CD4 <=200 Status: Acute (3) Oral thrush Status: Resolved Hospital Course - Lab Results Lab Results: Micro Results 10/16/18 10:51 Sputum Gram Stain - Final 10/16/18 10:51 Sputum Sputum Culture - Final NORMAL ORAL JOSE LUIS 10/14/18 17:15 Blood-Venous Blood Culture - Preliminary NO GROWTH AFTER 3 DAYS 10/14/18 17:30 Blood-Venous Blood Culture - Preliminary NO GROWTH AFTER 3 DAYS 10/14/18 16:01 Throat Group A Strep Throat Culture - Final NO BETA STREP GROUP A ISOLATED. 10/14/18 17:30 Urine,Clean Catch Urine Culture - Final Gram Negative Logan Most Recent Lab Values WBC 4.4 K/uL (4.8-10.8) L 10/18/18 04:30 RBC 3.48 Mil/uL (3.80-5.20) L 10/18/18 04:30 Hgb 9.3 g/dL (12.0-16.0) L 10/18/18 04:30 Hct 27.8 % (34.0-47.0) L 10/18/18 04:30 MCV 79.8 fl (81.0-99.0) L 10/18/18 04:30 MCH 26.7 pg (27.0-31.0) L 10/18/18 04:30 MCHC 33.4 g/dL (33.0-37.0) 10/18/18 04:30 RDW 15.6 % (11.5-14.5) H 10/18/18 04:30 Plt Count 245 K/uL (130-400) 10/18/18 04:30 MPV 8.0 fl (7.2-11.7) 10/18/18 04:30 Neut % (Auto) 48.4 % (50.0-75.0) L 10/18/18 04:30 Lymph % (Auto) 36.2 % (20.0-40.0) 10/18/18 04:30 [place] % (Auto) 11.3 % (0.0-10.0) H 10/18/18 04:30 Eos % (Auto) 3.7 % (0.0-4.0) 10/18/18 04:30 Baso % (Auto) 0.4 % (0.0-2.0) 10/18/18 04:30 Neut # (Auto) 2.1 K/uL (1.8-7.0) 10/18/18 04:30 Lymph # (Auto) 1.6 K/uL (1.0-4.3) 10/18/18 04:30 [place] # (Auto) 0.5 K/uL (0.0-0.8) 10/18/18 04:30 Eos # (Auto) 0.2 K/uL (0.0-0.7) 10/18/18 04:30 Baso # (Auto) 0.0 K/uL (0.0-0.2) 10/18/18 04:30 Neutrophils % (Manual) 54 % (42-75) 10/14/18 16:01 Lymphocytes % (Manual) 26 % (20-50) 10/14/18 16:01 Monocytes % (Manual) 18 % (0-10) H 10/14/18 16:01 Eosinophils % (Manual) 1 % (0-7) 10/14/18 16:01 Myelocytes % 1 % (0-0) H 10/14/18 16:01 Platelet Estimate Normal (NORMAL) 10/14/18 16:01 Large Platelets Present 10/14/18 16:01 Anisocytosis (manual) Slight 10/14/18 16:01 Tear Drop Cells Slight 10/14/18 16:01 PT 11.5 Seconds (9.8-13.1) 10/17/18 04:55 INR 1.0 10/17/18 04:55 APTT 31.3 Seconds (25.6-37.1) 10/17/18 04:55 Sodium 138 mmol/l (132-148) 10/18/18 04:30 Potassium 4.4 MMOL/L (3.6-5.0) 10/18/18 04:30 Chloride 106 mmol/L (98-107) 10/18/18 04:30 Carbon Dioxide 20 mmol/L (22-30) L 10/18/18 04:30 Anion Gap 16 (10-20) 10/18/18 04:30 BUN 44 mg/dl (7-17) H 10/18/18 04:30 Creatinine 5.6 mg/dl (0.7-1.2) H 10/18/18 04:30 Est GFR ( Amer) 10 10/18/18 04:30 Est GFR (Non-Af Amer) 9 10/18/18 04:30 Random Glucose 74 mg/dL (65-105) 10/18/18 04:30 Calcium 8.3 mg/dL (8.4-10.2) L 10/18/18 04:30 Phosphorus 5.0 mg/dl (2.5-4.5) H 10/15/18 05:30 Magnesium 1.7 MG/DL (1.6-2.3) 10/15/18 05:30 Iron 54 ug/dL (37-170) 10/14/18 20:10 TIBC 137 ug/dL (250-450) L 10/14/18 20:10 % Saturation 40 % (20-55) 10/14/18 20:10 Ferritin 547.0 ng/Ml (6.24-137.0) H 10/14/18 20:10 Total Bilirubin 0.2 mg/dl (0.2-1.3) 10/18/18 04:30 AST 31 U/L (14-36) 10/18/18 04:30 ALT 15 U/L (9-52) 10/18/18 04:30 Alkaline Phosphatase 92 U/L (38-126) 10/18/18 04:30 NT-Pro-B Natriuret Pep 274 pg/ml (0-450) 10/14/18 16:45 Total Protein 6.5 G/DL (6.3-8.2) 10/18/18 04:30 Albumin 2.6 g/dL (3.5-5.0) L 10/18/18 04:30 Globulin 3.9 gm/dL (2.2-3.9) 10/18/18 04:30 Albumin/Globulin Ratio 0.7 (1.0-2.1) L 10/18/18 04:30 Vitamin B12 345 pg/mL (239-931) 10/14/18 20:10 25-OH Vitamin D Total < 12.8 NG/ML (30.0-100.0) L 10/15/18 05:30 Folate 7.3 ng/mL 10/14/18 20:10 TSH 3rd Generation 1.63 mIU/ML (0.46-4.68) 10/15/18 05:30 PTH Intact Whole Molec 194 pg/mL (14-64) H 10/14/18 20:00 Urine Color Yellow (YELLOW) 10/14/18 18:30 Urine Clarity Slighty-cloudy (Clear) 10/14/18 18:30 Urine pH 6.0 (5.0-8.0) 10/14/18 18:30 Ur Specific [place] 1.015 (1.003-1.030) 10/14/18 18:30 Urine Protein >=500 mg/dL (NEGATIVE) 10/14/18 18:30 Urine Glucose (UA) 50 mg/dL (NEGATIVE) 10/14/18 18:30 Urine Ketones Negative mg/dL (NEGATIVE) 10/14/18 18:30 Urine Blood Moderate (NEGATIVE) 10/14/18 18:30 Urine Nitrate Negative (NEGATIVE) 10/14/18 18:30 Urine Bilirubin Negative (NEGATIVE) 10/14/18 18:30 Urine Urobilinogen 0.2-1.0 mg/dL (0.2-1.0) 10/14/18 18:30 Ur Leukocyte Esterase Neg Kendy/uL (Negative) 10/14/18 18:30 Urine RBC (Auto) 72 /hpf (0-3) H 10/14/18 18:30 Urine Microscopic WBC 2 /hpf (0-5) 10/14/18 18:30 Ur Squamous Epith Cells 1 /hpf (0-5) 10/14/18 18:30 Urine Bacteria Rare (<OCC) 10/14/18 18:30 Hyaline Casts 3-5 /hpf (0-2) H 10/14/18 18:30 Ur Random Creatinine 105 mg/dL (20-275) 10/14/18 18:50 U Random Total Protein 8387 mg/g creat (21-161) H 10/14/18 18:50 Urine Total Volume 396.5 mg/dL 10/14/18 18:50 Microalb/Creat Ratio 3776 (<30) H 10/14/18 18:50 LEXI Screen Negative (Negative) 10/14/18 20:00 Complement C3 132.0 mg/dL (88.0-165.0) 10/14/18 20:10 Complement C4 27.9 mg/dL (14.0-44.0) 10/14/18 20:10 Absolute Lymphs (Flow) 902 Cells/mcL (850-3900) 10/15/18 09:50 % CD4 Cells 1 Percent (30-61) L 10/15/18 09:50 Absolute CD4 Count <20 Cells/mcL (490-1740) L 10/15/18 09:50 T-Help/Suppress Ratio 0.01 Ratio (0.86-5.00) L 10/15/18 09:50 % CD8 Cells 70 Percent (12-42) H 10/15/18 09:50 Absolute CD8 Count 629 Cells/mcL (180-1170) 10/15/18 09:50 Hep Bs Antigen Negative (NEGATIVE) 10/14/18 20:10 Hep Bs Antibody Negative (NEGATIVE) 10/14/18 20:10 Hep B Core IgM Ab Negative (NEGATIVE) 10/14/18 20:10 Hepatitis C Antibody Negative (NEGATIVE) 10/14/18 20:10 HIV-1 Ab Rapid Screen Ab reactive (NON REAC) H 10/14/18 17:30 HIV-1 Antibody (EIA) Positive (Negative) H 10/14/18 17:30 HIV-1 RNA Qnt (RT-PCR) 5.34 (Not Detected) H 10/15/18 09:50 HIV-2 Antibody (EIA) Negative (Negative) 10/14/18 17:30 HIV 1&2 Antibody Screen Reactive (NEGATIVE) 10/14/18 20:10 HIV 1&2 Antibody Reactive (Nonreactive) H 10/14/18 17:30 Infectious [place] Assay Negative (NEGATIVE) 10/14/18 16:01 Influenza Typ A,B (EIA) Negative for flu a/b (NEGATIVE) 10/14/18 16:01 Anti-Streptolysin O Ab Negative (NEGATIVE) 10/14/18 20:00 Grp A Beta Strep Ag Negative (NEGATIVE) 10/14/18 16:01 Blood Type O POSITIVE 10/16/18 06:00 Blood Type Confirm O POSITIVE 10/15/18 05:30 Antibody Screen Negative 10/16/18 06:00 Crossmatch See Detail 10/16/18 06:00 BBK History Checked No verified bt 10/16/18 06:00 - Hospital Course Hospital Course: Kamlesh Rodriguez [id number] 38 year old [place]an speaking female presented to ER on 10/14/18 for evaluation of cough and fungal-like rash x 3 weeks. Patient was found to be in renal failure with positive rapid HIV test (newly diagnosed). Patient was admitted for ANTONINA. Both funeral assistant and ID were involved in patient's care. patient received 5 da ys of Zosyn and 5 days of Micafungin for cadiasis/cellulitis. Per nephologist recommendation, patient had renal biopsy done on 10/17/18. Today, patient's CD 4 is <20 with viral load of 121992. Patient received a dose of 1.2 gm azithromycin and bactrim SS for PCP and MAC prophylaxis. Patient complaints of hematuria and left sided flank pain this morning. Patient's H&H remained stable after renal biopsy. Consulted with IR Dr. Servin regarding hemturia who states it's normal to have some hematuria after renal biopsy. Forming Machine Upkeep Mechanic Dr. Lewis was consulted, patient can be discharged with current BUN/Cr but needs to have repeat BMP in 2-3 days. Patient was given rx of BMP to be repeated on 10/20/18 and has f/u appointment with Dr. Kahn on 10/21/18 at 8:20 am. auto body worker from [facility] clinic evaluated the patient for f/u appointment as well. Stressed the importance of establishing care at [facility] for HIV treatment. Patient was given ED precaution including development of any chest pain, dyspnea, fever, chills or worsening hematuria or flank pain. Medications on discharge: Azithromycin 1,200 mg PO QD7 #4 tablet Calcitriol [Rocaltrol] 0.25 mcg PO DAILY #30 sgl Calcium Acetate [Phoslo] 667 mg PO TID #90 capsule Ergocalciferol [Drisdol 50,000 Intl Units Cap] 1 cap PO Q7D #6 cap Ferrous Gluconate [Fergon] 324 mg PO TID #90 tab Fluconazole [Diflucan] 100 mg PO DAILY #5 tab Sulfamethoxazole/Trimethoprim [Bactrim SS 400 mg-80 mg] 1 tab PO DAILY #14 tab Vitamin B Complex/Vit C/Folic [Nephro-Marah] 1 tab PO DAILY #30 tab Discharge Exam - Head Exam Head Exam: NORMAL INSPECTION - Eye Exam Eye Exam: Normal appearance - ENT Exam ENT Exam: Mucous Membranes Moist - Respiratory Exam Respiratory Exam: Clear to PA & Lateral, NORMAL BREATHING PATTERN. absent: Rales, Rhonchi, Wheezes, Respiratory Distress - Cardiovascular Exam Cardiovascular Exam: REGULAR RHYTHM, +S1, +S2 - GI/Abdominal Exam GI & Abdominal Exam: Normal Bowel Sounds, Soft. absent: Tenderness - Back Exam Back exam: CVA tenderness (L). absent: CVA tenderness (R) Additional comments: biopsy dressing looks C/d/i. No oozing seen. - Neurological Exam Neurological exam: Alert, Oriented x3 - Psychiatric Exam Psychiatric exam: Normal Affect, Normal Mood - Skin Skin Exam: Normal Color Discharge Plan - Discharge Medications Prescriptions: Azithromycin 1,200 mg PO QD7 #4 tablet Calcitriol [Rocaltrol] 0.25 mcg PO DAILY #30 sgl Calcium Acetate [Phoslo] 667 mg PO TID #90 capsule Ergocalciferol [Drisdol 50,000 Intl Units Cap] 1 cap PO Q7D #6 cap Ferrous Gluconate [Fergon] 324 mg PO TID #90 tab Fluconazole [Diflucan] 100 mg PO DAILY #5 tab Sulfamethoxazole/Trimethoprim [Bactrim SS 400 mg-80 mg] 1 tab PO DAILY #14 tab Vitamin B Complex/Vit C/Folic [Nephro-Marah] 1 tab PO DAILY #30 tab - Follow Up Plan Condition: STABLE Disposition: HOME/ ROUTINE Instructions: Acute Kidney Failure (DC), HIV/AIDS (DC) Additional Instructions: Please follow up with Dr. Kahn at [facility] on Wednesday10/21/18 at 8:20 am. Rpt BMP to ff up on Creatinine, ff up RPR ( pending result Please come to hospital outpatient lab on 10/20/18 to do the blood test. Return to hospital if you develop any chest pain, dysnea, nausea, or vomiting. Referrals: [facility] [Outside] <Megha Franco - Last Filed: 10/18/18 19:57> Provider - Provider Date of Admission: 10/14/18 17:39 Attending physician: Fernie Johnson MD Consults: 10/14/18 17:10 Nephrology Consult Stat Comment: Consulting Provider: Babatunde Mckinney Consulting Physician: Babatunde Mckinney Reason for Consult: ARF 10/14/18 17:50 Infectious Disease Consult Stat Comment: Consulting Provider: Yyaa Carmona Consulting Physician: Yaya Carmona Reason for Consult: dissiminated fungal infection 10/17/18 08:00 Physician Consult Routine Comment: Consulting Provider: Vlad Servin Consulting Physician: Vlad Servin Reason for Consult: CT guided kidney biopsy Hospital Course - Lab Results Lab Results: Micro Results 10/14/18 17:15 Blood-Venous Blood Culture - Preliminary NO GROWTH AFTER 4 DAYS 10/14/18 17:30 Blood-Venous Blood Culture - Preliminary NO GROWTH AFTER 4 DAYS 10/16/18 10:51 Sputum Gram Stain - Final 10/16/18 10:51 Sputum Sputum Culture - Final NORMAL ORAL JOSE LUIS 10/14/18 16:01 Throat Group A Strep Throat Culture - Final NO BETA STREP GROUP A ISOLATED. 10/14/18 17:30 Urine,Clean Catch Urine Culture - Final Gram Negative [place] Most Recent Lab Values WBC 5.8 K/uL (4.8-10.8) 10/18/18 14:10 RBC 3.52 Mil/uL (3.80-5.20) L 10/18/18 14:10 Hgb 9.5 g/dL (12.0-16.0) L 10/18/18 14:10 Hct 27.9 % (34.0-47.0) L 10/18/18 14:10 MCV 79.4 fl (81.0-99.0) L 10/18/18 14:10 MCH 27.1 pg (27.0-31.0) 10/18/18 14:10 MCHC 34.1 g/dL (33.0-37.0) 10/18/18 14:10 RDW 15.9 % (11.5-14.5) H 10/18/18 14:10 Plt Count 296 K/uL (130-400) 10/18/18 14:10 MPV 7.9 fl (7.2-11.7) 10/18/18 14:10 Neut % (Auto) 55.3 % (50.0-75.0) 10/18/18 14:10 Lymph % (Auto) 33.8 % (20.0-40.0) 10/18/18 14:10 [place] % (Auto) 7.6 % (0.0-10.0) 10/18/18 14:10 Eos % (Auto) 2.8 % (0.0-4.0) 10/18/18 14:10 Baso % (Auto) 0.5 % (0.0-2.0) 10/18/18 14:10 Neut # (Auto) 3.2 K/uL (1.8-7.0) 10/18/18 14:10 Lymph # (Auto) 2.0 K/uL (1.0-4.3) 10/18/18 14:10 [place] # (Auto) 0.4 K/uL (0.0-0.8) 10/18/18 14:10 Eos # (Auto) 0.2 K/uL (0.0-0.7) 10/18/18 14:10 Baso # (Auto) 0.0 K/uL (0.0-0.2) 10/18/18 14:10 Neutrophils % (Manual) 54 % (42-75) 10/14/18 16:01 Lymphocytes % (Manual) 26 % (20-50) 10/14/18 16:01 Monocytes % (Manual) 18 % (0-10) H 10/14/18 16:01 Eosinophils % (Manual) 1 % (0-7) 10/14/18 16:01 Myelocytes % 1 % (0-0) H 10/14/18 16:01 Platelet Estimate Normal (NORMAL) 10/14/18 16:01 Large Platelets Present 10/14/18 16:01 Anisocytosis (manual) Slight 10/14/18 16:01 Tear Drop Cells Slight 10/14/18 16:01 PT 11.5 Seconds (9.8-13.1) 10/17/18 04:55 INR 1.0 10/17/18 04:55 APTT 31.3 Seconds (25.6-37.1) 10/17/18 04:55 Sodium 138 mmol/l (132-148) 10/18/18 04:30 Potassium 4.4 MMOL/L (3.6-5.0) 10/18/18 04:30 Chloride 106 mmol/L (98-107) 10/18/18 04:30 Carbon Dioxide 20 mmol/L (22-30) L 10/18/18 04:30 Anion Gap 16 (10-20) 10/18/18 04:30 BUN 44 mg/dl (7-17) H 10/18/18 04:30 Creatinine 5.6 mg/dl (0.7-1.2) H 10/18/18 04:30 Est GFR ( Amer) 10 10/18/18 04:30 Est GFR (Non-Af Amer) 9 10/18/18 04:30 Random Glucose 74 mg/dL (65-105) 10/18/18 04:30 Calcium 8.3 mg/dL (8.4-10.2) L 10/18/18 04:30 Phosphorus 5.0 mg/dl (2.5-4.5) H 10/15/18 05:30 Magnesium 1.7 MG/DL (1.6-2.3) 10/15/18 05:30 Iron 54 ug/dL (37-170) 10/14/18 20:10 TIBC 137 ug/dL (250-450) L 10/14/18 20:10 % Saturation 40 % (20-55) 10/14/18 20:10 Ferritin 547.0 ng/Ml (6.24-137.0) H 10/14/18 20:10 Total Bilirubin 0.2 mg/dl (0.2-1.3) 10/18/18 04:30 AST 31 U/L (14-36) 10/18/18 04:30 ALT 15 U/L (9-52) 10/18/18 04:30 Alkaline Phosphatase 92 U/L (38-126) 10/18/18 04:30 NT-Pro-B Natriuret Pep 274 pg/ml (0-450) 10/14/18 16:45 Total Protein 6.5 G/DL (6.3-8.2) 10/18/18 04:30 Albumin 2.6 g/dL (3.5-5.0) L 10/18/18 04:30 Globulin 3.9 gm/dL (2.2-3.9) 10/18/18 04:30 Albumin/Globulin Ratio 0.7 (1.0-2.1) L 10/18/18 04:30 Vitamin B12 345 pg/mL (239-931) 10/14/18 20:10 25-OH Vitamin D Total < 12.8 NG/ML (30.0-100.0) L 10/15/18 05:30 Folate 7.3 ng/mL 10/14/18 20:10 TSH 3rd Generation 1.63 mIU/ML (0.46-4.68) 10/15/18 05:30 PTH Intact Whole Molec 194 pg/mL (14-64) H 10/14/18 20:00 Urine Color Yellow (YELLOW) 10/14/18 18:30 Urine Clarity Slighty-cloudy (Clear) 10/14/18 18:30 Urine pH 6.0 (5.0-8.0) 10/14/18 18:30 Ur Specific [place] 1.015 (1.003-1.030) 10/14/18 18:30 Urine Protein >=500 mg/dL (NEGATIVE) 10/14/18 18:30 Urine Glucose (UA) 50 mg/dL (NEGATIVE) 10/14/18 18:30 Urine Ketones Negative mg/dL (NEGATIVE) 10/14/18 18:30 Urine Blood Moderate (NEGATIVE) 10/14/18 18:30 Urine Nitrate Negative (NEGATIVE) 10/14/18 18:30 Urine Bilirubin Negative (NEGATIVE) 10/14/18 18:30 Urine Urobilinogen 0.2-1.0 mg/dL (0.2-1.0) 10/14/18 18:30 Ur Leukocyte Esterase Neg Kendy/uL (Negative) 10/14/18 18:30 Urine RBC (Auto) 72 /hpf (0-3) H 10/14/18 18:30 Urine Microscopic WBC 2 /hpf (0-5) 10/14/18 18:30 Ur Squamous Epith Cells 1 /hpf (0-5) 10/14/18 18:30 Urine Bacteria Rare (<OCC) 10/14/18 18:30 Hyaline Casts 3-5 /hpf (0-2) H 10/14/18 18:30 Ur Random Creatinine 105 mg/dL (20-275) 10/14/18 18:50 U Random Total Protein 8387 mg/g creat (21-161) H 10/14/18 18:50 Urine Total Volume 396.5 mg/dL 10/14/18 18:50 Microalb/Creat Ratio 3776 (<30) H 10/14/18 18:50 LEXI Screen Negative (Negative) 10/14/18 20:00 Complement C3 132.0 mg/dL (88.0-165.0) 10/14/18 20:10 Complement C4 27.9 mg/dL (14.0-44.0) 10/14/18 20:10 Absolute Lymphs (Flow) 902 Cells/mcL (850-3900) 10/15/18 09:50 % CD4 Cells 1 Percent (30-61) L 10/15/18 09:50 Absolute CD4 Count <20 Cells/mcL (490-1740) L 10/15/18 09:50 T-Help/Suppress Ratio 0.01 Ratio (0.86-5.00) L 10/15/18 09:50 % CD8 Cells 70 Percent (12-42) H 10/15/18 09:50 Absolute CD8 Count 629 Cells/mcL (180-1170) 10/15/18 09:50 Hep Bs Antigen Negative (NEGATIVE) 10/14/18 20:10 Hep Bs Antibody Negative (NEGATIVE) 10/14/18 20:10 Hep B Core IgM Ab Negative (NEGATIVE) 10/14/18 20:10 Hepatitis C Antibody Negative (NEGATIVE) 10/14/18 20:10 HIV-1 Ab Rapid Screen Ab reactive (NON REAC) H 10/14/18 17:30 HIV-1 Antibody (EIA) Positive (Negative) H 10/14/18 17:30 HIV-1 RNA Qnt (RT-PCR) 5.34 (Not Detected) H 10/15/18 09:50 HIV-2 Antibody (EIA) Negative (Negative) 10/14/18 17:30 HIV 1&2 Antibody Screen Reactive (NEGATIVE) 10/14/18 20:10 HIV 1&2 Antibody Reactive (Nonreactive) H 10/14/18 17:30 Infectious [place] Assay Negative (NEGATIVE) 10/14/18 16:01 Influenza Typ A,B (EIA) Negative for flu a/b (NEGATIVE) 10/14/18 16:01 Anti-Streptolysin O Ab Negative (NEGATIVE) 10/14/18 20:00 Grp A Beta Strep Ag Negative (NEGATIVE) 10/14/18 16:01 Blood Type O POSITIVE 10/16/18 06:00 Blood Type Confirm O POSITIVE 10/15/18 05:30 Antibody Screen Negative 10/16/18 06:00 Crossmatch See Detail 10/16/18 06:00 BBK History Checked No verified bt 10/16/18 06:00 Attending/Attestation - Attestation I have personally seen and examined this patient.: Yes I have fully participated in the care of the patient.: Yes I have reviewed all pertinent clinical information, including history, physical exam and plan: Yes Notes (Text): 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
[2018-10-18] MEDS ORDERED: Tmp-Smz 400 mg-80 mg SS Tab PO STA (13:54)
[2018-10-18 14:31] LABS: BASO % 0.5 % (0.0-2.0); EOS # 0.2 K/uL (0.0-0.7); EOS % 2.8 % (0.0-4.0); HEMOGLOBIN 9.5 g/dL (12.0-16.0); LYMPH % 33.8 % (20.0-40.0); MEAN CELL VOLUME 79.4 fl (81.0-99.0); MEAN CORPUSCULAR HEMOGLOBIN 27.1 pg (27.0-31.0); MEAN CORPUSCULAR HGB CONC 34.1 g/dL (33.0-37.0); MEAN PLATELET VOLUME 7.9 fl (7.2-11.7); MONO # 0.4 K/uL (0.0-0.8); MONO % 7.6 % (0.0-10.0); NEUT # 3.2 K/uL (1.8-7.0); NEUT % 55.3 % (50.0-75.0); NRBC % 0.2 % (0.0-0.0); RBC 3.52 Mil/uL (3.80-5.20); RED CELL DISTRIBUTION WIDTH 15.9 % (11.5-14.5); WHITE BLOOD COUNT 5.8 K/uL (4.8-10.8)
[2018-10-18 15:46] VITALS: BP 134/88; PULSE 74; RESP 17; TEMP 98.8; O2SAT 98
[2018-10-18] MEDS: Epoetin Alfa 20000 UNIT/ML Inj SC SCH (16:04)
[2018-10-18] MEDS: Pantoprazole 40 mg EC Tab PO SCH (16:18)
[2018-10-18] MEDS: Multivitamin Vitamin B Complex (Nephro-Vite) Tab PO SCH (16:18)
[2018-10-18] MEDS: Micafungin 100 MG in Sodium Chloride 0.9% 100 ML IV SCH (16:18)
[2018-10-18] MEDS: Diphenhydramine 1% CREAM TOP SCH (17:14)
== END 2018-10-18 17:10 | disposition home or self-care (01) | DRG 892 ==
LOC: H.ER 13:59 → H.ERHOLD 17:39 → H.TEL 22:11
DX: B20 Human immunodeficiency virus [HIV] disease (principal); N17.9 Acute kidney failure, unspecified; B37.0 Candidal stomatitis; E87.2 Acidosis; N39.0 Urinary tract infection, site not specified; D64.9 Anemia, unspecified; E55.9 Vitamin D deficiency, unspecified; E66.9 Obesity, unspecified; N29 Other disorders of kidney and ureter in diseases classified elsewhere; R13.10 Dysphagia, unspecified; Z87.891 Personal history of nicotine dependence; Z98.891 History of uterine scar from previous surgery